=== PATIENT | female | born 1950 | race Caucasian/White ===

== ENCOUNTER 2017-09-24 15:27 | Inpatient (IN) | payer MEDICARE ==
[~2017-09-24] VITALS: Ht 167.6 cm; Wt 57.2 kg
[2017-09-24] MEDS ORDERED: ACETAMINOPHEN 325 MG TABLET PO PRN (17:00)
[2017-09-24] MEDS ORDERED: MAGNESIUM HYDROXIDE 2,400 MG/30 ML ORAL.SUSP. PO PRN (17:00)
[2017-09-24] MEDS ORDERED: METHYL SALICYLATE/MENTHOL TOPICAL OINTMENT 29GM TUBE. TP PRN (17:00)
[2017-09-24] MEDS ORDERED: CYAN10002 IJ (17:05)
[2017-09-24] MEDS ORDERED: ASPI-630 PO (17:05)
[2017-09-24] MEDS ORDERED: BUPR150T15 PO (17:05)
[2017-09-24] MEDS ORDERED: ALPR0.5T PO (17:05)
[2017-09-24] MEDS ORDERED: ALPRAZolam 0.5 MG TABLET PO PRN (17:15)
[2017-09-24] MEDS ORDERED: PANT40TA3 PO (17:25)
[2017-09-24] MEDS: ALPRAZolam 0.5 MG TABLET PO SCH (19:47)
[2017-09-24 22:21] VITALS: BP 111/75
[2017-09-25 04:30] LABS: BACTERIA,URINE 0 /HPF (0-FEW); BILIRUBIN,URINE NEG (NEG); CLARITY,URINE CLEAR; COLOR,URINE YELLOW; GLUCOSE,URINE NEG (NEG); NITRITE,URINE NEG (NEG); RBC,URINE 0 /HPF (0-2); UROBILINOGEN,URINE 0.2 mg/dL (0.2 mg/dL); WBC,URINE RARE /HPF (0-4)
[2017-09-25] MEDS: MAG HYDROX/AL HYDROX/SIMETH 30 ML ORAL.SUSP PO PRN (05:02)
[2017-09-25 05:45] VITALS: BP 140/73
[2017-09-25] MEDS: PANTOPRAZOLE 40 MG TABLET. PO SCH (08:05)
[2017-09-25] MEDS: ASPIRIN 81 MG TAB.CHEW PO SCH (08:05)
[2017-09-25] MEDS: ALPRAZolam 0.5 MG TABLET PO SCH ×3 (08:05→19:39)
[2017-09-25 08:11] LABS: BASO % 0 % (0-3); EOS % 1 % (0-3); HEMATOCRIT 43.4 % (36.0-47.0); HEMOGLOBIN 14.8 g/dL (12.0-15.5); LYMPH # 0.8 x10^3/uL (1.0-4.8); LYMPH % 14 % (24-48); MEAN CORPUSCULAR HEMOGLOBIN 32 pg (25-35); MEAN CORPUSCULAR HGB CONC 34 g/dL (31-37); MEAN CORPUSCULAR VOLUME 93 fL (79-100); MONO # 0.4 x10^3/uL (0.0-1.1); MONO % 7 % (0-9); NEUT # 4.6 x10^3uL (1.8-7.7); NEUT % 78 % (31-73); PLATELET COUNT 244 x10^3/uL (140-400); RED BLOOD COUNT 4.64 x10^6/uL (3.50-5.40); RED CELL DISTRIBUTION WIDTH 12.5 % (11.5-14.5); WHITE BLOOD COUNT 5.9 x10^3/uL (4.0-11.0)
[2017-09-25 08:30] LABS: ALBUMIN 3.8 g/dL (3.4-5.0); ALBUMIN/GLOBULIN RATIO 0.9 (1.0-1.7); CALCIUM 9.6 mg/dL (8.5-10.1); CREATININE 0.9 mg/dL (0.6-1.0); GFR 62.1; MAGNESIUM 1.9 mg/dL (1.8-2.4); POTASSIUM 3.6 mmol/L (3.5-5.1); TOTAL BILIRUBIN 0.4 mg/dL (0.2-1.0); TOTAL PROTEIN 8.2 g/dL (6.4-8.2)
[2017-09-25] MEDS ORDERED: buPROPion XL 150 MG TAB.ER.24H PO SCH (09:00)
[2017-09-25 10:30] LABS: THYROID STIM HORMONE (TSH) 1.666 uIU/mL (0.358-3.740)
--- NOTE | 2017-09-25 12:45 | HP ---
ADMIT DATE: 09/24/2017 This is a late entry for date of service 09/24/2017 and covers elements not covered in my initial note of 09/24/2017. I met with the patient at length. Discussed with nursing staff, previously discussed with nursing staff on 2 or 3 separate occasions including prior to the patient's admission to gather information from [facility] where she was referred to us by Dr. Fabian Hidalgo, her primary care physician for worsening anxiety, being isolated, symptoms of agoraphobia, panic attack, scared of leaving the house, marked depressive symptoms, having failed outpatient psychiatric interventions at [facility] with Chris Ellison, therapist and Dr. Hidalgo, managing her psychotropics. The patient is nonfunctional, lives at home by herself, unable to go out and do shopping and other things necessary for her survival due to the marked anxiety, agoraphobia and referred for inpatient psychiatric interventions. CHIEF COMPLAINT: "It has been getting worse for 2 months. I have had anxiety, panic for a long time, but I just can't handle it now for the past 2 months. I have been seeing Chris Ellison, Dr. Hidalgo has been adjusting my medications, but nothing is helping. I'm on Xanax, previously have been on Klonopin and amitriptyline." HISTORY OF PRESENT ILLNESS: The patient has a long history of depression, which has been worsening for the past 2 months, though there is no clear psychosocial stressor to account for this. She has a couple of family members living in [place] and other family in [place], but she does live alone by herself with her pet. Previously, she was driving, but unable to do all of this. She admits to feeling hopeless, helpless, worthless, having sleep and appetite changes. Some paranoia, but no active suicidal or homicidal ideation. No clear history of bipolar disorder. PAST PSYCHIATRIC HISTORY: As above. MEDICAL HISTORY: Positive for GERD, B12 deficiency, Crohn's disease. DRUG ALLERGIES: FLORINEF, DARVOCET, PREDNISONE, REMICADE, SEPTRA, TORADOL, LEVAQUIN, KETOROLAC. CURRENT PSYCHOTROPICS: Xanax 0.5 mg 3 times a day. CODE STATUS: DNR. FAMILY HISTORY: Noncontributory. SOCIAL HISTORY: No history of alcohol, drug abuse, physical, sexual or elder abuse. She is not known to be a perpetrator. 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 REACTION TO HOSPITALIZATION: The patient accepting of this. ASSETS: Supportive family and outpatient providers at the [facility] in [place]. MENTAL STATUS EXAM: The patient was seen individually evening of 09/24/2017. She is well oriented, extremely anxious, depressed. Speech coherent, abstraction fair, computation reasonable, language function intact. No active suicidal or homicidal ideation. Attention span short. IMPRESSION: 1. Major depressive disorder, recurrent. 2. Generalized anxiety disorder. 3. Panic disorder with agoraphobia. 4. Rest diagnoses as above. PLAN: Admit to Geropsychiatry Unit at [facility]. I will see the patient daily individually from a psychiatric standpoint, medical followup per Dr. Emmanuel/Dr. Olivia. Continue the patient on her current psychotropic, start Cymbalta 30 mg a day. Add Seroquel 12.5 mg 9 a.m. and 5 p.m. to augment the Cymbalta given that she has failed multiple antidepressants in the past. Generally, I would have liked to wait to add the Seroquel, but given the extent of her symptoms, the fact that she may not stay on her unit for too long, given that many of the patients on the unit have significant cognitive deficits and the fact that she has failed intensive outpatient treatment, I feel it is justified to initiate the Seroquel at this time. Estimated length of stay is 7-9 days. DISCHARGE DISPOSITION: Back home with outpatient at the [facility] in [place], [place]. MAN Alejandro VALENCIA MD DR: HOMERO/av JOB#: [id number] / [id number]
[2017-09-25 13:07] LABS: THYROXINE 9.3 ug/dL (4.5-12.0)
[2017-09-25] MEDS ORDERED: CALCIUM CARBONATE 500 MG TAB.CHEW PO PRN (13:45)
[2017-09-25 16:17] VITALS: BP 118/87
[2017-09-25] MEDS ORDERED: NYSTATIN TOPICAL POWDER 15GM BOTTLE. TP ONE (17:39)
--- NOTE | 2017-09-25 19:46 | PDOC ---
Exam Note: Sal Note: Late entry for date of service September. Please also refer to the separate dictated note~for this date of service dictated separately.~Patient seen individually. Discussed the patient with Nursing staff reviewed the chart.~ Reviewed interim history and current functioning. Reviewed vital signs,~Labs/ Radiology~and current medications noted below. Continue current treatment with the changes noted in the dictated addendum note Assessment: Vital Signs: VS - Last 72 Hours, by Label Date Time Temp Pulse Resp B/P (MAP) Pulse Ox O2 Delivery O2 Flow Rate FiO2 09/25/17 16:17 98.1 92 20 118/87 (97) 100 Room Air 09/25/17 05:45 97.5 104 18 140/73 (95) 96 09/24/17 22:21 97.8 91 16 111/75 (87) 98 Vital Signs Date Time Temp Pulse Resp B/P (MAP) Pulse Ox O2 Delivery O2 Flow Rate FiO2 09/25/17 16:17 98.1 92 20 118/87 (97) 100 Room Air I&O Intake and Output 09/25/17 07:00 Intake Total 240 ml Balance 240 ml Intake Oral 240 ml # Voids 1 Labs: Laboratory Tests Test 09/25/17 04:00 09/25/17 07:28 Urine Collection Type Unknown Urine Color Yellow Urine Clarity Clear Urine pH 6.0 Urine Specific [place] 1.010 Urine Protein Neg (NEG-TRACE) Urine Glucose (UA) Neg mg/dL (NEG) Urine Ketones (Stick) Neg mg/dL (NEG) Urine Blood Neg (NEG) Urine Nitrite Neg (NEG) Urine Bilirubin Neg (NEG) Urine Urobilinogen Dipstick 0.2 mg/dL (0.2 mg/dL) Urine Leukocyte Esterase Neg (NEG) Urine RBC 0 /HPF (0-2) Urine WBC Rare /HPF (0-4) Urine Squamous Epithelial Cells None /LPF Urine Bacteria 0 /HPF (0-FEW) White Blood Count 5.9 x10^3/uL (4.0-11.0) Red Blood Count 4.64 x10^6/uL (3.50-5.40) Hemoglobin 14.8 g/dL (12.0-15.5) Hematocrit 43.4 % (36.0-47.0) Mean Corpuscular Volume 93 fL (79-100) Mean Corpuscular Hemoglobin 32 pg (25-35) Mean Corpuscular Hemoglobin Concent 34 g/dL (31-37) Red Cell Distribution Width 12.5 % (11.5-14.5) Platelet Count 244 x10^3/uL (140-400) Neutrophils (%) (Auto) 78 % (31-73) H Lymphocytes (%) (Auto) 14 % (24-48) L Monocytes (%) (Auto) 7 % (0-9) Eosinophils (%) (Auto) 1 % (0-3) Basophils (%) (Auto) 0 % (0-3) Neutrophils # (Auto) 4.6 x10^3uL (1.8-7.7) Lymphocytes # (Auto) 0.8 x10^3/uL (1.0-4.8) L Monocytes # (Auto) 0.4 x10^3/uL (0.0-1.1) Eosinophils # (Auto) 0.0 x10^3/uL (0.0-0.7) Basophils # (Auto) 0.0 x10^3/uL (0.0-0.2) Sodium Level 140 mmol/L (136-145) Potassium Level 3.6 mmol/L (3.5-5.1) Chloride Level 103 mmol/L (98-107) Carbon Dioxide Level 30 mmol/L (21-32) Anion Gap 7 (6-14) Blood Urea Nitrogen 10 mg/dL (7-20) Creatinine 0.9 mg/dL (0.6-1.0) Estimated GFR (Cockcroft-Gault) 62.1 BUN/Creatinine Ratio 11 (6-20) Glucose Level 86 mg/dL (70-99) Calcium Level 9.6 mg/dL (8.5-10.1) Magnesium Level 1.9 mg/dL (1.8-2.4) Iron Level 85 ug/dL (50-170) Total Iron Binding Capacity 294 ug/dL (250-450) Iron Saturation 29 % (15-34) Total Bilirubin 0.4 mg/dL (0.2-1.0) Aspartate Amino Transferase (AST) 28 U/L (15-37) Alanine Aminotransferase (ALT) 25 U/L (14-59) Alkaline Phosphatase 119 U/L (46-116) H Total Protein 8.2 g/dL (6.4-8.2) Albumin 3.8 g/dL (3.4-5.0) Albumin/Globulin Ratio 0.9 (1.0-1.7) L Triglycerides Level 86 mg/dL (0-150) Cholesterol Level 181 mg/dL (0-200) LDL Cholesterol, Calculated 84 mg/dL (0-100) VLDL Cholesterol, Calculated 17 mg/dL (0-40) Non-HDL Cholesterol Calculated 101 mg/dL (0-129) HDL Cholesterol 80 mg/dL (40-60) H Cholesterol/HDL Ratio 2.0 Thyroid Stimulating Hormone (TSH) 1.666 uIU/mL (0.358-3.740) Thyroxine (T4) 9.3 ug/dL (4.5-12.0) Total Triiodothyronine (TT3) 140 ng/dL (71-180) Current Medications: Meds: Current Medications Acetaminophen (Tylenol) 650 mg PRN Q6HRS PRN PO PAIN / TEMP; Start 09/24/17 at 17:00 Multi-Ingredient Ointment (Analgesic [place]) 1 franki PRN QID PRN TP MUSCLE PAIN; Start 09/24/17 at 17:00 Al Hydroxide/Mg Hydroxide (Mylanta Plus Xs) 15 ml PRN AFTMEALHC PRN PO DYSPEPSIA Last administered on 09/25/17at 05:02; Start 09/24/17 at 17:00 Magnesium Hydroxide (Milk Of Magnesia) 2,400 mg PRN QHS PRN PO CONSTIPATION; Start 09/24/17 at 17:00 Alprazolam (Xanax) 0.5 mg PRN TID PRN PO ANXIETY / AGITATION; Start 09/24/17 at 17:15; Stop 09/24/17 at 17:37; Status DC Bupropion HCl (Wellbutrin Xl) 150 mg DAILY PO ; Start 09/25/17 at 09:00; Stop 09/25/17 at 09:00; Status DC Cyanocobalamin (Vitamin B-12) 1,000 mcg QMONTH IM ; Start 10/24/17 at 09:00; Stop 10/24/17 at 09:00; Status DC Aspirin (Children'S Aspirin) 81 mg DAILY PO Last administered on 09/25/17at 08:05 ; Start 09/25/17 at 09:00 Pantoprazole Sodium (Protonix) 40 mg DAILY PO Last administered on 09/25/17at 08: 05; Start 09/25/17 at 09:00 Alprazolam (Xanax) 0.5 mg TID PO Last administered on 09/25/17at 19:39; Start 09/24/17 at 21:00 Cyanocobalamin (Vitamin B-12) 1,000 mcg QMONTH IM ; Start 10/14/17 at 09:00 Duloxetine HCl (Cymbalta) 30 mg DAILY PO ; Start 09/26/17 at 09:00 Quetiapine Fumarate (SEROquel) 12.5 mg BIDWBKFT/MARILYN PO ; Start 09/26/17 at 08:00 Calcium Carbonate/ Glycine (Tums) 500 mg PRN AFTMEALHC PRN PO INDIGESTION Last administered on 09/25/17at 14:56; Start 09/25/17 at 13:45 Nystatin (Nystop) 1 franki BID TP ; Start 09/25/17 at 21:00 Nystatin (Nystop) 15 franki STK-MED ONCE TP Last administered on 09/25/17at 17:39; Start 09/25/17 at 17:39; Stop 09/25/17 at 17:40; Status DC Mirtazapine (Remeron) 7.5 mg QHS PO ; Start 09/25/17 at 21:00 Active Scripts Active Reported Protonix (Pantoprazole Sodium) 40 Mg Tablet.dr 1 Tab PO DAILY Cyanocobalamin Injection (Cyanocobalamin (Vitamin B-12)) 1,000 Mcg/1 Ml Vial 1, 000 Mcg IJ QMONTH Aspirin 81 Mg Tab.chew 81 Mg PO DAILY Xanax (Alprazolam) 0.5 Mg Tablet 0.5 Mg PO PRN TID PRN I have reviewed the current psychotropics carefully including drug interactions. Risk benefit ratio favors no change other than as noted in my dictated progress note. Diagnosis: Problems: (1) Anxiety disorder (2) Major depressive disorder, recurrent episode (3) Panic disorder with agoraphobia and severe panic attacks JAGDEEP VALENCIA MD Sep 25, 2017 19:46
[2017-09-25] MEDS: MIRTAZAPINE 7.5 MG TABLET. PO SCH (19:51)
[2017-09-25] MEDS: NYSTATIN TOPICAL POWDER 15GM BOTTLE. TP SCH (19:52)
--- NOTE | 2017-09-25 21:52 | CONS ---
DATE OF CONSULTATION: 09/25/2017 REASON FOR CONSULTATION: Medical management. HISTORY OF PRESENT ILLNESS: The patient is a 67-year-old female patient who was admitted on account of increased anxiety, isolation, scared to leave house, scared to go to the shopping centers or drive her car, all this on a background of major depressive disorder with anxiety. PAST MEDICAL HISTORY: Significant for Meniere's disease, atrial fibrillation, Crohn's disease, and vitreous detachment. PAST SURGICAL HISTORY: Significant for appendectomy, resection of the skin cancer on her left face, bilateral cataract extraction, esophagogastroduodenoscopy as well as colonoscopy. ALLERGIES: She is allergic to TYLENOL, FLUDROCORTISONE, INDOMETHACIN, INFLIXIMAB, KETOROLAC, LEVOFLOXACIN, PROPOXYPHENE, SULFAMETHOXAZOLE, AND TRIMETHOPRIM. MEDICATIONS: She is currently on following medications: She is on aspirin 81 mg once a day, alprazolam 0.5 mg 3 times a day, Protonix 40 mg daily, and cyanocobalamin, vitamin B12 1000 mcg/mL intramuscularly every month. FAMILY HISTORY: She has one sister older and healthy. Father at the age of 75 because of lung cancer. Mother is still alive at the age of 92. She is known to have osteoarthritis, diabetes, anxiety as well as hypertension. SOCIAL HISTORY: She is , has stepsons. She quit smoking 40 years ago. She used to smoke. She smoked half a pack a day for years. She does not drink alcohol. She is retired. She used to work for the [employer]. REVIEW OF SYSTEMS: The patient denied any blurring of vision. She had bilateral cataract extraction. She has also vitreous detachment. She has Meniere's disease with a constant tinnitus and her hearing is worsening. She denied any stuffy nose, nosebleed, or postnasal drip. Denied any sore throat, sore tongue, toothache, hoarseness of voice, or difficulty swallowing. She did complain of diarrhea because of her Crohn's disease. Denied any dysuria, frequency, or hematuria. Did complain of itching and skin rash in both groin areas. Denied any chest pain, shortness of breath, orthopnea, paroxysmal nocturnal dyspnea. Denied any cough, phlegm, or hemoptysis. She does complain of dizziness. PHYSICAL EXAMINATION: GENERAL: When I examined her, she was sitting comfortably in her chair in no apparent respiratory distress. There were no pallor, jaundice, cyanosis, or thyromegaly. No jugular venous distension. No lower limb edema. VITAL SIGNS: Her heart rate was 104, blood pressure was 140/73, temperature was 97.5, respiratory rate was 18, and oxygen saturation was 96%. HEAD, EYES, EARS, NOSE, AND THROAT: Showed normocephalic, atraumatic. NECK: Supple. HEART: Showed normal first and second heart sounds. No gallop, rub, or murmur. CHEST: Clear to auscultation. No crepitation or rhonchi. ABDOMEN: Distended, soft, nontender. No guarding or rigidity. No organomegaly. All hernial orifice intact. Bowel sounds normal. NEUROLOGIC: She is awake, alert, responding appropriately. All cranial nerves intact. EXTREMITIES: She moves extremities without difficulty. She ambulates without assistance or assistive devices. LABORATORY DATA: Showed a white cell count 5900, hemoglobin 15, hematocrit 43, MCV 93, and platelet count of 244,000 with normal manual differential. Her serum sodium was 140, potassium 3.6, chloride 103, bicarbonate 30, anion gap of 7, BUN 10, creatinine 0.9, estimated GFR was 62 mL per minute. Her glucose was 86, calcium was 9.6, magnesium was 1.9. Her serum iron was 85, TIBC was 294, and iron saturation was 29. Total bilirubin 0.4. AST, ALT normal. Alkaline phosphatase slightly elevated. Her total protein was 8.2, albumin was 3.8. Serum triglycerides were 86, total cholesterol was 181, LDL was 84, VLDL was 17, and ratio was 2. Her TSH was 1.0666, total T4 was . Her urinalysis showed the urine was yellow, clear with a pH of 6, specific gravity of 1.010. The urine was negative for protein, glucose, ketones, blood, nitrite, and leukocyte esterase were negative. There are no rbc's, very rare wbc's, and no bacteria. IMPRESSION: In summary, this is a 67-year-old female patient who was admitted with worsening anxiety, being isolated, symptoms of agoraphobia, panic attacks, scared of leaving the house, marked depressive symptoms, having failed outpatient psychiatric intervention and she is here for an inpatient psychiatric stabilization. Medically, she has multiple medical problems including Meniere's disease, atrial fibrillation, and Crohn's disease. She has also vitamin B12 deficiency, gastroesophageal reflux disease. Medically, she seemed to be all in all stable. Her vital signs today and lab works are all within acceptable range. I will definitely continue all her current medication. I will review all the lab works that are still pending at the time of this dictation and make any necessary recommendation. Thank you, Dr. Mosquera for allowing me to participate in the care of this patient. TAMMY SANTILLAN MD DR: KATHERINE/av JOB#: [id number] / [id number]
[2017-09-26 06:26] VITALS: BP 121/72
[2017-09-26] MEDS: DULoxetine HCL 30 MG CAPSULE.DR PO SCH (08:00)
[2017-09-26] MEDS: PANTOPRAZOLE 40 MG TABLET. PO SCH (08:00)
[2017-09-26] MEDS: ASPIRIN 81 MG TAB.CHEW PO SCH (08:00)
[2017-09-26] MEDS: ALPRAZolam 0.5 MG TABLET PO SCH ×2 (08:00→14:00)
[2017-09-26] MEDS: QUEtiapine 25 MG TABLET. PO SCH ×2 (08:05→14:00)
[2017-09-26] MEDS: NYSTATIN TOPICAL POWDER 15GM BOTTLE. TP SCH ×2 (09:42→21:05)
[2017-09-26 13:13] LABS: HEMOGLOBIN A1C 4.8 % (4.8-5.6)
--- NOTE | 2017-09-26 13:51 | PN ---
DATE: 09/25/2017 This late entry, 09/25/2017, covers elements not covered in my initial note. SUBJECTIVE: I met with the patient in the evening. The patient slept 3 hours previous evening, remains anxious, restless. REVIEW OF SYSTEMS: Positive for vague somatic symptoms, GI symptoms, though she does have Crohn's. No CV, , pulmonary, eye system symptoms on review. I met with her individually at length in her room. MENTAL STATUS EXAM: Reasonably oriented. Speech is coherent, abstraction fair, computation impaired, language function intact, attention span short. Mood and affect remain somewhat anxious, labile. LABORATORY DATA: Reviewed. IMPRESSION: Major depressive disorder; panic disorder with agoraphobia; anxiety disorder, unspecified. PLAN: Start Remeron 7.5 mg p.o. at bedtime to help with insomnia and anxiety, Cymbalta 30 mg a day for her mood and anxiety symptoms and should help with pain symptoms as well and Seroquel 12.5 mg at 9 a.m. and 5:00 p.m. to augment the Cymbalta to help with anxiety and mood lability. Adjust further as clinically indicated. MAN Alejandro VALENCIA MD DR: HOMERO/av JOB#: [id number] / [id number]
[2017-09-26 16:04] VITALS: BP 125/75
[2017-09-26] MEDS ORDERED: ALPRAZolam 0.5 MG TABLET PO PRN (18:30)
[2017-09-26] MEDS: MIRTAZAPINE 7.5 MG TABLET. PO SCH (20:16)
--- NOTE | 2017-09-26 21:04 | PDOC ---
Exam Note: Sal Note: Please also refer to the separate dictated note~for this date of service dictated separately.~Patient seen individually. Discussed the patient with Nursing staff reviewed the chart.~Reviewed interim history and current functioning. Reviewed vital signs,~Labs/ Radiology~and current medications noted below. Continue current treatment with the changes noted in the dictated addendum note Assessment: Vital Signs: Vital Signs Date Time Temp Pulse Resp B/P (MAP) Pulse Ox O2 Delivery O2 Flow Rate FiO2 09/26/17 16:04 97.8 107 20 125/75 (92) 98 09/26/17 06:26 Room Air I&O Intake and Output 09/26/17 07:00 Intake Total 1320 ml Balance 1320 ml Intake Oral 1320 ml Current Medications: Meds: Current Medications Acetaminophen (Tylenol) 650 mg PRN Q6HRS PRN PO PAIN / TEMP; Start 09/24/17 at 17:00 Multi-Ingredient Ointment (Analgesic [place]) 1 franki PRN QID PRN TP MUSCLE PAIN; Start 09/24/17 at 17:00 Al Hydroxide/Mg Hydroxide (Mylanta Plus Xs) 15 ml PRN AFTMEALHC PRN PO DYSPEPSIA Last administered on 09/25/17at 05:02; Start 09/24/17 at 17:00 Magnesium Hydroxide (Milk Of Magnesia) 2,400 mg PRN QHS PRN PO CONSTIPATION; Start 09/24/17 at 17:00 Alprazolam (Xanax) 0.5 mg PRN TID PRN PO ANXIETY / AGITATION; Start 09/24/17 at 17:15; Stop 09/24/17 at 17:37; Status DC Bupropion HCl (Wellbutrin Xl) 150 mg DAILY PO ; Start 09/25/17 at 09:00; Stop 09/25/17 at 09:00; Status DC Cyanocobalamin (Vitamin B-12) 1,000 mcg QMONTH IM ; Start 10/24/17 at 09:00; Stop 10/24/17 at 09:00; Status DC Aspirin (Children'S Aspirin) 81 mg DAILY PO Last administered on 09/26/17at 08:00 ; Start 09/25/17 at 09:00 Pantoprazole Sodium (Protonix) 40 mg DAILY PO Last administered on 09/26/17at 08: 00; Start 09/25/17 at 09:00 Alprazolam (Xanax) 0.5 mg TID PO Last administered on 09/26/17at 14:00; Start 09/24/17 at 21:00; Stop 09/26/17 at 18:16; Status DC Cyanocobalamin (Vitamin B-12) 1,000 mcg QMONTH IM ; Start 10/14/17 at 09:00 Duloxetine HCl (Cymbalta) 30 mg DAILY PO Last administered on 09/26/17at 08:00; Start 09/26/17 at 09:00 Quetiapine Fumarate (SEROquel) 12.5 mg BIDWBKFT/MARILYN PO Last administered on 09/26 14:00; Start 09/26/17 at 08:00 Calcium Carbonate/ Glycine (Tums) 500 mg PRN AFTMEALHC PRN PO INDIGESTION Last administered on 09/25/17 14:56; Start 09/25/17 at 13:45 Nystatin (Nystop) 1 franki BID TP Last administered on 09/26/17at 09:42; Start at 21:00 Nystatin (Nystop) 15 franki STK-MED ONCE TP Last administered on 09/25/17 17:39; Start 09/25/17 at 17:39; Stop 09/25/17 at 17:40; Status DC Mirtazapine (Remeron) 7.5 mg QHS PO Last administered on 09/26/17at 20:16; Start 09/25/17 at 21:00 Alprazolam (Xanax) 0.5 mg PRN TID PRN PO ANXIETY / AGITATION; Start 09/26/17 at 18:30 Active Scripts Active Reported Protonix (Pantoprazole Sodium) 40 Mg Tablet.dr 1 Tab PO DAILY Cyanocobalamin Injection (Cyanocobalamin (Vitamin B-12)) 1,000 Mcg/1 Ml Vial 1, 000 Mcg IJ QMONTH Aspirin 81 Mg Tab.chew 81 Mg PO DAILY Xanax (Alprazolam) 0.5 Mg Tablet 0.5 Mg PO PRN TID PRN I have reviewed the current psychotropics carefully including drug interactions. Risk benefit ratio favors no change other than as noted in my dictated progress note. Diagnosis: Problems: (1) Anxiety disorder (2) Major depressive disorder, recurrent episode (3) Panic disorder with agoraphobia and severe panic attacks JAGDEEP VALENCIA MD Sep 26, 2017 21:04
[2017-09-27 06:47] VITALS: BP 142/79
[2017-09-27] MEDS: QUEtiapine 25 MG TABLET. PO SCH ×2 (08:08→12:53)
[2017-09-27] MEDS: PANTOPRAZOLE 40 MG TABLET. PO SCH (08:09)
[2017-09-27] MEDS: ASPIRIN 81 MG TAB.CHEW PO SCH (08:09)
[2017-09-27] MEDS: DULoxetine HCL 30 MG CAPSULE.DR PO SCH (08:09)
[2017-09-27] MEDS: NYSTATIN TOPICAL POWDER 15GM BOTTLE. TP SCH ×2 (08:10→20:59)
--- NOTE | 2017-09-27 10:31 | PN ---
DATE: 09/26/2017 This is a late entry, 09/26/2017, covers the elements not covered in my initial note. SUBJECTIVE: I met with the patient in the evening. The patient slept 7 hours the previous evening. Complains of some tiredness since we started the Seroquel, but feels anxiety is better. She talked to the therapist, Kristi Ellison earlier in the day and felt reassured being here. She complains of being somewhat withdrawn, slept 7 hours. REVIEW OF SYSTEMS: No CV, , pulmonary, eye system symptoms on review. I met with her at some length in her room. MENTAL STATUS EXAM: Reasonably oriented. Speech is coherent, abstraction fair, computation impaired, language function intact, attention span short. Mood and affect still anxious, obsessive, labile, but much improved. LABORATORY DATA: Reviewed. IMPRESSION: Major depressive disorder; anxiety disorder, unspecified; panic disorder with agoraphobia. PLAN: Given the sedation, we will change the Xanax 0.25 mg three times a day to 0.25 mg three times a day as needed anxiety. Continue Seroquel 12.5 mg 9 before noon, 1 after noon, Cymbalta 30 mg a day, and Remeron 7.5 mg by mouth at bedtime, and she slept much better the previous evening. Adjust further as clinically indicated. JAGDEEP VALENCIA MD DR: HOMERO/av JOB#: [id number] / [id number]
[2017-09-27 16:18] VITALS: BP 127/79
--- NOTE | 2017-09-27 20:29 | PDOC ---
Exam Note: Sal Note: Please also refer to the separate dictated note~for this date of service dictated separately.~Patient seen individually. Discussed the patient with Nursing staff reviewed the chart.~Reviewed interim history and current functioning. Reviewed vital signs,~Labs/ Radiology~and current medications noted below. Continue current treatment with the changes noted in the dictated addendum note Assessment: Vital Signs: Vital Signs Date Time Temp Pulse Resp B/P (MAP) Pulse Ox O2 Delivery O2 Flow Rate FiO2 09/27/17 16:18 98.2 111 18 127/79 (95) 100 09/26/17 06:26 Room Air I&O Intake and Output 09/27/17 06:59 Intake Total 1320 ml Balance 1320 ml Intake Oral 1320 ml Current Medications: Meds: Current Medications Acetaminophen (Tylenol) 650 mg PRN Q6HRS PRN PO PAIN / TEMP Last administered on 09/27/17at 05:58; Start 09/24/17 at 17:00 Multi-Ingredient Ointment (Analgesic [place]) 1 franki PRN QID PRN TP MUSCLE PAIN; Start 09/24/17 at 17:00 Al Hydroxide/Mg Hydroxide (Mylanta Plus Xs) 15 ml PRN AFTMEALHC PRN PO DYSPEPSIA Last administered on 09/25/17at 05:02; Start 09/24/17 at 17:00 Magnesium Hydroxide (Milk Of Magnesia) 2,400 mg PRN QHS PRN PO CONSTIPATION; Start 09/24/17 at 17:00 Alprazolam (Xanax) 0.5 mg PRN TID PRN PO ANXIETY / AGITATION; Start 09/24/17 at 17:15; Stop 09/24/17 at 17:37; Status DC Bupropion HCl (Wellbutrin Xl) 150 mg DAILY PO ; Start 09/25/17 at 09:00; Stop 09/25/17 at 09:00; Status DC Cyanocobalamin (Vitamin B-12) 1,000 mcg QMONTH IM ; Start 10/24/17 at 09:00; Stop 10/24/17 at 09:00; Status DC Aspirin (Children'S Aspirin) 81 mg DAILY PO Last administered on 09/27/17at 08:09 ; Start 09/25/17 at 09:00 Pantoprazole Sodium (Protonix) 40 mg DAILY PO Last administered on 09/27/17at 08: 09; Start 09/25/17 at 09:00 Alprazolam (Xanax) 0.5 mg TID PO Last administered on 09/26/17at 14:00; Start 09/24/17 at 21:00; Stop 09/26/17 at 18:16; Status DC Cyanocobalamin (Vitamin B-12) 1,000 mcg QMONTH IM ; Start 10/14/17 at 09:00 Duloxetine HCl (Cymbalta) 30 mg DAILY PO Last administered on 09/27/17at 08:09; Start 09/26/17 at 09:00 Quetiapine Fumarate (SEROquel) 12.5 mg BIDWBKFT/MARILYN PO Last administered on 09/27at 12:53; Start 09/26/17 at 08:00 Calcium Carbonate/ Glycine (Tums) 500 mg PRN AFTMEALHC PRN PO INDIGESTION Last administered on 09/25/17 14:56; Start 09/25/17 at 13:45 Nystatin (Nystop) 1 franki BID TP Last administered on 09/27/17at 08:10; Start at 21:00 Nystatin (Nystop) 15 franki STK-MED ONCE TP Last administered on 09/25/17at 17:39; Start 09/25/17 at 17:39; Stop 09/25/17 at 17:40; Status DC Mirtazapine (Remeron) 7.5 mg QHS PO Last administered on 09/26/17at 20:16; Start 09/25/17 at 21:00 Alprazolam (Xanax) 0.5 mg PRN TID PRN PO ANXIETY / AGITATION; Start 09/26/17 at 18:30; Stop 09/27/17 at 16:59; Status DC Betamethasone/ Clotrimazole (Lotrisone) 1 franki BID TP ; Start 09/27/17 at 21:00 Alprazolam (Xanax) 0.25 mg BID PO ; Start 09/27/17 at 21:00; Stop 09/30/17 at 22: 00 Alprazolam (Xanax) 0.25 mg DAILY PRN PO ANXIETY / AGITATION; Start 10/01/17 at 09:00; Stop 10/03/17 at 12:00 Alprazolam (Xanax) 0.25 mg PRN BID PRN PO ANXIETY / AGITATION; Start 10/04/17 at 09:00 Active Scripts Active Reported Protonix (Pantoprazole Sodium) 40 Mg Tablet.dr 1 Tab PO DAILY Cyanocobalamin Injection (Cyanocobalamin (Vitamin B-12)) 1,000 Mcg/1 Ml Vial 1, 000 Mcg IJ QMONTH Aspirin 81 Mg Tab.chew 81 Mg PO DAILY Xanax (Alprazolam) 0.5 Mg Tablet 0.5 Mg PO PRN TID PRN I have reviewed the current psychotropics carefully including drug interactions. Risk benefit ratio favors no change other than as noted in my dictated progress note. Diagnosis: Problems: (1) Anxiety disorder (2) Major depressive disorder, recurrent episode (3) Panic disorder with agoraphobia and severe panic attacks JAGDEEP VALENCIA MD Sep 27, 2017 20:29
[2017-09-27] MEDS: CLOTRIMAZOLE/BETAMETH 1%-0.05% TOPICAL CREAM 15GM TUBE. TP SCH (21:00)
[2017-09-27] MEDS: ALPRAZolam 0.25 MG TABLET PO SCH (21:00)
[2017-09-27] MEDS: MIRTAZAPINE 7.5 MG TABLET. PO SCH (21:00)
[2017-09-28 05:49] VITALS: BP 140/76
[2017-09-28] MEDS: QUEtiapine 25 MG TABLET. PO SCH ×2 (07:40→11:53)
[2017-09-28] MEDS: ASPIRIN 81 MG TAB.CHEW PO SCH (07:40)
[2017-09-28] MEDS: PANTOPRAZOLE 40 MG TABLET. PO SCH (07:40)
[2017-09-28] MEDS: DULoxetine HCL 30 MG CAPSULE.DR PO SCH (07:40)
[2017-09-28] MEDS: NYSTATIN TOPICAL POWDER 15GM BOTTLE. TP SCH ×2 (07:43→19:48)
[2017-09-28] MEDS: CLOTRIMAZOLE/BETAMETH 1%-0.05% TOPICAL CREAM 15GM TUBE. TP SCH ×2 (07:43→19:48)
[2017-09-28] MEDS: ALPRAZolam 0.25 MG TABLET PO SCH ×2 (07:43→19:45)
[2017-09-28 16:17] VITALS: BP 130/82
[2017-09-28] MEDS: MIRTAZAPINE 15 MG TABLET PO SCH (19:48)
--- NOTE | 2017-09-28 21:00 | PDOC ---
Exam Note: Sal Note: Please also refer to the separate dictated note~for this date of service dictated separately.~Patient seen individually. Discussed the patient with Nursing staff reviewed the chart.~Reviewed interim history and current functioning. Reviewed vital signs,~Labs/ Radiology~and current medications noted below. Continue current treatment with the changes noted in the dictated addendum note Assessment: Vital Signs: Vital Signs Date Time Temp Pulse Resp B/P (MAP) Pulse Ox O2 Delivery O2 Flow Rate FiO2 09/28/17 16:17 97.9 89 16 130/82 (98) 97 09/26/17 06:26 Room Air I&O Intake and Output 09/28/17 06:59 Intake Total 840 ml Balance 840 ml Intake Oral 840 ml # Bowel Movements 2 Current Medications: Meds: Current Medications Acetaminophen (Tylenol) 650 mg PRN Q6HRS PRN PO PAIN / TEMP Last administered on 09/27/17at 05:58; Start 09/24/17 at 17:00 Multi-Ingredient Ointment (Analgesic [place]) 1 franki PRN QID PRN TP MUSCLE PAIN; Start 09/24/17 at 17:00 Al Hydroxide/Mg Hydroxide (Mylanta Plus Xs) 15 ml PRN AFTMEALHC PRN PO DYSPEPSIA Last administered on 09/25/17at 05:02; Start 09/24/17 at 17:00 Magnesium Hydroxide (Milk Of Magnesia) 2,400 mg PRN QHS PRN PO CONSTIPATION; Start 09/24/17 at 17:00 Alprazolam (Xanax) 0.5 mg PRN TID PRN PO ANXIETY / AGITATION; Start 09/24/17 at 17:15; Stop 09/24/17 at 17:37; Status DC Bupropion HCl (Wellbutrin Xl) 150 mg DAILY PO ; Start 09/25/17 at 09:00; Stop 09/25/17 at 09:00; Status DC Cyanocobalamin (Vitamin B-12) 1,000 mcg QMONTH IM ; Start 10/24/17 at 09:00; Stop 10/24/17 at 09:00; Status DC Aspirin (Children'S Aspirin) 81 mg DAILY PO Last administered on 09/28/17at 07:40 ; Start 09/25/17 at 09:00 Pantoprazole Sodium (Protonix) 40 mg DAILY PO Last administered on 09/28/17 07: 40; Start 09/25/17 at 09:00 Alprazolam (Xanax) 0.5 mg TID PO Last administered on 09/26/17 14:00; Start 09/24/17 at 21:00; Stop 09/26/17 at 18:16; Status DC Cyanocobalamin (Vitamin B-12) 1,000 mcg QMONTH IM ; Start 10/14/17 at 09:00 Duloxetine HCl (Cymbalta) 30 mg DAILY PO Last administered on 09/28/17 07:40; Start 09/26/17 at 09:00 Quetiapine Fumarate (SEROquel) 12.5 mg BIDWBKFT/MARILYN PO Last administered on 09/28 11:53; Start 09/26/17 at 08:00; Stop 09/28/17 at 18:02; Status DC Calcium Carbonate/ Glycine (Tums) 500 mg PRN AFTMEALHC PRN PO INDIGESTION Last administered on 09/25/17at 14:56; Start 09/25/17 at 13:45 Nystatin (Nystop) 1 franki BID TP Last administered on 09/28/17 19:48; Start at 21:00 Nystatin (Nystop) 15 franki STK-MED ONCE TP Last administered on 09/25/17 17:39; Start 09/25/17 at 17:39; Stop 09/25/17 at 17:40; Status DC Mirtazapine (Remeron) 7.5 mg QHS PO Last administered on 09/27/17at 21:00; Start 09/25/17 at 21:00; Stop 09/28/17 at 16:28; Status DC Alprazolam (Xanax) 0.5 mg PRN TID PRN PO ANXIETY / AGITATION; Start 09/26/17 at 18:30; Stop 09/27/17 at 16:59; Status DC Betamethasone/ Clotrimazole (Lotrisone) 1 franki BID TP Last administered on 19:48; Start 09/27/17 at 21:00 Alprazolam (Xanax) 0.25 mg BID PO Last administered on 09/28/17 19:45; Start at 21:00; Stop 09/30/17 at 22:00 Alprazolam (Xanax) 0.25 mg DAILY PRN PO ANXIETY / AGITATION; Start 10/01/17 at 09:00; Stop 10/03/17 at 12:00 Alprazolam (Xanax) 0.25 mg PRN BID PRN PO ANXIETY / AGITATION; Start 10/04/17 at 09:00 Mirtazapine (Remeron) 15 mg QHS PO Last administered on 09/28/17at 19:48; Start 09/28/17 at 21:00 Quetiapine Fumarate (SEROquel) 12.5 mg TID@0900,1300,1700 PO ; Start 09/29/17 at 09:00 Active Scripts Active Reported Protonix (Pantoprazole Sodium) 40 Mg Tablet.dr 1 Tab PO DAILY Cyanocobalamin Injection (Cyanocobalamin (Vitamin B-12)) 1,000 Mcg/1 Ml Vial 1, 000 Mcg IJ QMONTH Aspirin 81 Mg Tab.chew 81 Mg PO DAILY Xanax (Alprazolam) 0.5 Mg Tablet 0.5 Mg PO PRN TID PRN I have reviewed the current psychotropics carefully including drug interactions. Risk benefit ratio favors no change other than as noted in my dictated progress note. Diagnosis: Problems: (1) Anxiety disorder (2) Major depressive disorder, recurrent episode (3) Panic disorder with agoraphobia and severe panic attacks JAGDEEP VALENCIA MD Sep 28, 2017 21:00
--- NOTE | 2017-09-28 22:27 | PN ---
DATE: 09/27/2017 PSYCHIATRIC PROGRESS NOTE This is a late entry, 09/27, covers elements not covered in my initial note. SUBJECTIVE: I met with the patient in the evening. The patient slept 7-1/2 hours previous evening. Overall, she has been doing reasonably well, but complains of feeling dizzy. She seems to be adjusting to the Seroquel and we will restart her on Xanax schedule, drop it down to 0.25 mg twice a day for 3 days, once a day for 3 days, then twice a day p.r.n. thereafter. No CV, , pulmonary, eye system symptoms on review. MENTAL STATUS EXAM: Reasonably oriented. Speech coherent, abstraction fair, computation impaired, language function intact, attention span short. Mood and affect showing some improvement, but ongoing anxiety is evident. LABORATORY DATA: Reviewed. IMPRESSION: Unchanged from initial note. PLAN: No change from initial note. MAN Alejandro VALENCIA MD DR: HOMERO/av JOB#: [id number] / [id number]
[2017-09-29 06:11] VITALS: BP 147/84
[2017-09-29] MEDS: MAG HYDROX/AL HYDROX/SIMETH 30 ML ORAL.SUSP PO PRN (06:22)
[2017-09-29] MEDS: ASPIRIN 81 MG TAB.CHEW PO SCH (07:55)
[2017-09-29] MEDS: DULoxetine HCL 30 MG CAPSULE.DR PO SCH (07:55)
[2017-09-29] MEDS: CLOTRIMAZOLE/BETAMETH 1%-0.05% TOPICAL CREAM 15GM TUBE. TP SCH ×2 (07:55→19:11)
[2017-09-29] MEDS: PANTOPRAZOLE 40 MG TABLET. PO SCH (07:55)
[2017-09-29] MEDS: NYSTATIN TOPICAL POWDER 15GM BOTTLE. TP SCH ×2 (07:55→19:11)
[2017-09-29] MEDS: QUEtiapine 25 MG TABLET. PO SCH ×3 (07:57→16:41)
[2017-09-29] MEDS: ALPRAZolam 0.25 MG TABLET PO SCH ×2 (07:57→19:14)
[2017-09-29 15:38] VITALS: BP 129/75
[2017-09-29] MEDS: MIRTAZAPINE 15 MG TABLET PO SCH (19:11)
--- NOTE | 2017-09-29 20:20 | PDOC ---
Exam Note: Sal Note: Please also refer to the separate dictated note~for this date of service dictated separately.~Patient seen individually. Discussed the patient with Nursing staff reviewed the chart.~Reviewed interim history and current functioning. Reviewed vital signs,~Labs/ Radiology~and current medications noted below. Continue current treatment with the changes noted in the dictated addendum note Assessment: Vital Signs: Vital Signs Date Time Temp Pulse Resp B/P (MAP) Pulse Ox O2 Delivery O2 Flow Rate FiO2 09/29/17 15:38 97.7 85 17 129/75 (93) 98 Room Air I&O Intake and Output 09/29/17 07:00 Intake Total 880 ml Balance 880 ml Intake Oral 880 ml Current Medications: Meds: Current Medications Acetaminophen (Tylenol) 650 mg PRN Q6HRS PRN PO PAIN / TEMP Last administered on 09/27/17at 05:58; Start 09/24/17 at 17:00 Multi-Ingredient Ointment (Analgesic [place]) 1 franki PRN QID PRN TP MUSCLE PAIN; Start 09/24/17 at 17:00 Al Hydroxide/Mg Hydroxide (Mylanta Plus Xs) 15 ml PRN AFTMEALHC PRN PO DYSPEPSIA Last administered on 09/29/17at 06:22; Start 09/24/17 at 17:00 Magnesium Hydroxide (Milk Of Magnesia) 2,400 mg PRN QHS PRN PO CONSTIPATION; Start 09/24/17 at 17:00 Alprazolam (Xanax) 0.5 mg PRN TID PRN PO ANXIETY / AGITATION; Start 09/24/17 at 17:15; Stop 09/24/17 at 17:37; Status DC Bupropion HCl (Wellbutrin Xl) 150 mg DAILY PO ; Start 09/25/17 at 09:00; Stop 09/25/17 at 09:00; Status DC Cyanocobalamin (Vitamin B-12) 1,000 mcg QMONTH IM ; Start 10/24/17 at 09:00; Stop 10/24/17 at 09:00; Status DC Aspirin (Children'S Aspirin) 81 mg DAILY PO Last administered on 09/29/17at 07:55 ; Start 09/25/17 at 09:00 Pantoprazole Sodium (Protonix) 40 mg DAILY PO Last administered on 09/29/17at 07: 55; Start 09/25/17 at 09:00 Alprazolam (Xanax) 0.5 mg TID PO Last administered on 09/26/17 14:00; Start 09/24/17 at 21:00; Stop 09/26/17 at 18:16; Status DC Cyanocobalamin (Vitamin B-12) 1,000 mcg QMONTH IM ; Start 10/14/17 at 09:00 Duloxetine HCl (Cymbalta) 30 mg DAILY PO Last administered on 09/29/17 07:55; Start 09/26/17 at 09:00 Quetiapine Fumarate (SEROquel) 12.5 mg BIDWBKFT/MARILYN PO Last administered on 09/28 11:53; Start 09/26/17 at 08:00; Stop 09/28/17 at 18:02; Status DC Calcium Carbonate/ Glycine (Tums) 500 mg PRN AFTMEALHC PRN PO INDIGESTION Last administered on 09/25/17 14:56; Start 09/25/17 at 13:45 Nystatin (Nystop) 1 franki BID TP Last administered on 09/29/17 19:11; Start at 21:00 Nystatin (Nystop) 15 franki STK-MED ONCE TP Last administered on 09/25/17 17:39; Start 09/25/17 at 17:39; Stop 09/25/17 at 17:40; Status DC Mirtazapine (Remeron) 7.5 mg QHS PO Last administered on 09/27/17at 21:00; Start 09/25/17 at 21:00; Stop 09/28/17 at 16:28; Status DC Alprazolam (Xanax) 0.5 mg PRN TID PRN PO ANXIETY / AGITATION; Start 09/26/17 at 18:30; Stop 09/27/17 at 16:59; Status DC Betamethasone/ Clotrimazole (Lotrisone) 1 franki BID TP Last administered on 19:11; Start 09/27/17 at 21:00 Alprazolam (Xanax) 0.25 mg BID PO Last administered on 09/29/17 19:14; Start at 21:00; Stop 09/30/17 at 22:00 Alprazolam (Xanax) 0.25 mg DAILY PRN PO ANXIETY / AGITATION; Start 10/01/17 at 09:00; Stop 10/03/17 at 12:00 Alprazolam (Xanax) 0.25 mg PRN BID PRN PO ANXIETY / AGITATION; Start 10/04/17 at 09:00 Mirtazapine (Remeron) 15 mg QHS PO Last administered on 09/29/17at 19:11; Start 09/28/17 at 21:00 Quetiapine Fumarate (SEROquel) 12.5 mg TID@0900,1300,1700 PO Last administered on 09/29/17at 16:41; Start 09/29/17 at 09:00 Active Scripts Active Reported Protonix (Pantoprazole Sodium) 40 Mg Tablet.dr 1 Tab PO DAILY Cyanocobalamin Injection (Cyanocobalamin (Vitamin B-12)) 1,000 Mcg/1 Ml Vial 1, 000 Mcg IJ QMONTH Aspirin 81 Mg Tab.chew 81 Mg PO DAILY Xanax (Alprazolam) 0.5 Mg Tablet 0.5 Mg PO PRN TID PRN I have reviewed the current psychotropics carefully including drug interactions. Risk benefit ratio favors no change other than as noted in my dictated progress note. Diagnosis: Problems: (1) Anxiety disorder (2) Major depressive disorder, recurrent episode (3) Panic disorder with agoraphobia and severe panic attacks JAGDEEP VALENCIA MD Sep 29, 2017 20:20
[2017-09-30 05:53] VITALS: BP 137/88
[2017-09-30] MEDS: PANTOPRAZOLE 40 MG TABLET. PO SCH (08:18)
[2017-09-30] MEDS: DULoxetine HCL 30 MG CAPSULE.DR PO SCH (08:18)
[2017-09-30] MEDS: QUEtiapine 25 MG TABLET. PO SCH ×3 (08:18→17:09)
[2017-09-30] MEDS: ALPRAZolam 0.25 MG TABLET PO SCH ×2 (08:18→19:28)
[2017-09-30] MEDS: ASPIRIN 81 MG TAB.CHEW PO SCH (08:18)
[2017-09-30] MEDS: CLOTRIMAZOLE/BETAMETH 1%-0.05% TOPICAL CREAM 15GM TUBE. TP SCH ×2 (08:19→19:28)
[2017-09-30] MEDS: NYSTATIN TOPICAL POWDER 15GM BOTTLE. TP SCH ×2 (08:19→20:05)
[2017-09-30] MEDS: MAG HYDROX/AL HYDROX/SIMETH 30 ML ORAL.SUSP PO PRN (08:49)
[2017-09-30] MEDS ORDERED: CHOLECALCIFEROL (VITAMIN D3) 50,000 UNIT CAPSULE PO SCH (13:30)
--- NOTE | 2017-09-30 13:38 | PN ---
DATE: 09/28/2017 PSYCHIATRIC PROGRESS NOTE This is a late entry, 09/28, covers elements not covered in my initial note, 09/28. SUBJECTIVE: I met with the patient in the evening. The patient has had a better day. She is less anxious, slept 4-3/4 hours previous evening. Appetite about 80%. She complains of some dizziness, lightheadedness, but better than before. REVIEW OF SYSTEMS: No CV, , pulmonary, eye system symptoms on review. MENTAL STATUS EXAM: Well oriented. Speech is coherent, met with her at length in her room. Abstraction fair, computation reasonable, language function intact. Mood and affect appears improved, less labile, less anxious. LABORATORY DATA: Reviewed. IMPRESSION: Major depressive disorder; anxiety disorder, unspecified; panic disorder. PLAN: Increase Remeron to 15 mg p.o. at bedtime to help with insomnia and anxiety. Continue rest unchanged per initial note. JAGDEEP VALENCIA MD DR: HOMERO/av JOB#: [id number] / [id number]
--- NOTE | 2017-09-30 13:41 | PN ---
DATE: 09/29/2017 PSYCHIATRIC PROGRESS NOTE This is a late entry, 09/29, covers elements not covered in my initial note. SUBJECTIVE: I met with the patient in the evening and staffed at treatment team meeting with the entire team in the morning and the patient attended this conference as well. Lengthy discussion with staff about patient's diagnosis, circumstances prompting admission, discussion of her medications, discharge, aftercare plans at the [facility] in [place]. The patient is sleeping about 5-1/2 hours, has some lightheadedness, but again it is better. Appetite is good. REVIEW OF SYSTEMS: No CV, , pulmonary, eye system symptoms on review. MENTAL STATUS EXAM: Reasonably oriented. Speech is coherent, abstraction fair, computation impaired, language function intact. Mood and affect still anxious, but improved. LABORATORY DATA: Reviewed. IMPRESSION: Unchanged from initial note. PLAN: No change from initial note. JAGDEEP VALENCIA MD DR: HOMERO/av JOB#: [id number] / [id number]
[2017-09-30 16:14] VITALS: BP 102/68
[2017-09-30] MEDS: MIRTAZAPINE 15 MG TABLET PO SCH (19:27)
--- NOTE | 2017-09-30 20:47 | PDOC ---
Exam Note: Sal Note: Please also refer to the separate dictated note~for this date of service dictated separately.~Patient seen individually. Discussed the patient with Nursing staff reviewed the chart.~Reviewed interim history and current functioning. Reviewed vital signs,~Labs/ Radiology~and current medications noted below. Continue current treatment with the changes noted in the dictated addendum note Assessment: Vital Signs: Vital Signs Date Time Temp Pulse Resp B/P (MAP) Pulse Ox O2 Delivery O2 Flow Rate FiO2 09/30/17 16:14 98.6 104 18 102/68 (79) 97 09/29/17 15:38 Room Air I&O Intake and Output 09/30/17 07:00 Intake Total 1200 ml Balance 1200 ml Intake Oral 1200 ml # Voids 1 Current Medications: Meds: Current Medications Acetaminophen (Tylenol) 650 mg PRN Q6HRS PRN PO PAIN / TEMP Last administered on 09/27/17at 05:58; Start 09/24/17 at 17:00 Multi-Ingredient Ointment (Analgesic [place]) 1 franki PRN QID PRN TP MUSCLE PAIN; Start 09/24/17 at 17:00 Al Hydroxide/Mg Hydroxide (Mylanta Plus Xs) 15 ml PRN AFTMEALHC PRN PO DYSPEPSIA Last administered on 09/30/17at 08:49; Start 09/24/17 at 17:00 Magnesium Hydroxide (Milk Of Magnesia) 2,400 mg PRN QHS PRN PO CONSTIPATION; Start 09/24/17 at 17:00 Alprazolam (Xanax) 0.5 mg PRN TID PRN PO ANXIETY / AGITATION; Start 09/24/17 at 17:15; Stop 09/24/17 at 17:37; Status DC Bupropion HCl (Wellbutrin Xl) 150 mg DAILY PO ; Start 09/25/17 at 09:00; Stop 09/25/17 at 09:00; Status DC Cyanocobalamin (Vitamin B-12) 1,000 mcg QMONTH IM ; Start 10/24/17 at 09:00; Stop 10/24/17 at 09:00; Status DC Aspirin (Children'S Aspirin) 81 mg DAILY PO Last administered on 09/30/17at 08: 18; Start 09/25/17 at 09:00 Pantoprazole Sodium (Protonix) 40 mg DAILY PO Last administered on 09/30/17 08 :18; Start 09/25/17 at 09:00 Alprazolam (Xanax) 0.5 mg TID PO Last administered on 09/26/17at 14:00; Start 09/24/17 at 21:00; Stop 09/26/17 at 18:16; Status DC Cyanocobalamin (Vitamin B-12) 1,000 mcg QMONTH IM ; Start 10/14/17 at 09:00 Duloxetine HCl (Cymbalta) 30 mg DAILY PO Last administered on 09/30/17 08:18; Start 09/26/17 at 09:00 Quetiapine Fumarate (SEROquel) 12.5 mg BIDWBKFT/MARILYN PO Last administered on 09/28 11:53; Start 09/26/17 at 08:00; Stop 09/28/17 at 18:02; Status DC Calcium Carbonate/ Glycine (Tums) 500 mg PRN AFTMEALHC PRN PO INDIGESTION Last administered on 09/25/17 14:56; Start 09/25/17 at 13:45 Nystatin (Nystop) 1 franki BID TP Last administered on 09/30/17 20:05; Start 09/25 at 21:00 Nystatin (Nystop) 15 franki STK-MED ONCE TP Last administered on 09/25/17 17:39; Start 09/25/17 at 17:39; Stop 09/25/17 at 17:40; Status DC Mirtazapine (Remeron) 7.5 mg QHS PO Last administered on 09/27/17at 21:00; Start 09/25/17 at 21:00; Stop 09/28/17 at 16:28; Status DC Alprazolam (Xanax) 0.5 mg PRN TID PRN PO ANXIETY / AGITATION; Start 09/26/17 at 18:30; Stop 09/27/17 at 16:59; Status DC Betamethasone/ Clotrimazole (Lotrisone) 1 franki BID TP Last administered on at 19:28; Start 09/27/17 at 21:00 Alprazolam (Xanax) 0.25 mg BID PO Last administered on 09/30/17at 19:28; Start 09/27/17 at 21:00; Stop 09/30/17 at 22:00 Alprazolam (Xanax) 0.25 mg DAILY PRN PO ANXIETY / AGITATION; Start 10/01/17 at 09:00; Stop 10/03/17 at 12:00 Alprazolam (Xanax) 0.25 mg PRN BID PRN PO ANXIETY / AGITATION; Start 10/04/17 at 09:00 Mirtazapine (Remeron) 15 mg QHS PO Last administered on 09/30/17at 19:27; Start 09/28/17 at 21:00 Quetiapine Fumarate (SEROquel) 12.5 mg TID@0900,1300,1700 PO Last administered on 09/30/17at 17:09; Start 09/29/17 at 09:00 Vitamin D (Vitamin D3) 50,000 unit WEEKLY PO Last administered on 09/30/17at 13: 24; Start 09/30/17 at 13:30 Active Scripts Active Reported Protonix (Pantoprazole Sodium) 40 Mg Tablet.dr 1 Tab PO DAILY Cyanocobalamin Injection (Cyanocobalamin (Vitamin B-12)) 1,000 Mcg/1 Ml Vial 1, 000 Mcg IJ QMONTH Aspirin 81 Mg Tab.chew 81 Mg PO DAILY Xanax (Alprazolam) 0.5 Mg Tablet 0.5 Mg PO PRN TID PRN I have reviewed the current psychotropics carefully including drug interactions. Risk benefit ratio favors no change other than as noted in my dictated progress note. Diagnosis: Problems: (1) Anxiety disorder (2) Major depressive disorder, recurrent episode (3) Panic disorder with agoraphobia and severe panic attacks JAGDEEP VALENCIA MD Sep 30, 2017 20:47
[2017-10-01 06:40] VITALS: BP 142/77
[2017-10-01] MEDS: DULoxetine HCL 30 MG CAPSULE.DR PO SCH (07:53)
[2017-10-01] MEDS: PANTOPRAZOLE 40 MG TABLET. PO SCH (07:53)
[2017-10-01] MEDS: ASPIRIN 81 MG TAB.CHEW PO SCH (07:53)
[2017-10-01] MEDS: QUEtiapine 25 MG TABLET. PO SCH ×3 (07:53→16:44)
[2017-10-01 07:54] LABS: BASO % 1 % (0-3); EOS # 0.1 x10^3/uL (0.0-0.7); EOS % 1 % (0-3); HEMATOCRIT 41.3 % (36.0-47.0); HEMOGLOBIN 14.1 g/dL (12.0-15.5); LYMPH # 0.9 x10^3/uL (1.0-4.8); LYMPH % 19 % (24-48); MEAN CORPUSCULAR HEMOGLOBIN 32 pg (25-35); MEAN CORPUSCULAR HGB CONC 34 g/dL (31-37); MEAN CORPUSCULAR VOLUME 93 fL (79-100); MONO # 0.4 x10^3/uL (0.0-1.1); MONO % 7 % (0-9); NEUT # 3.5 x10^3uL (1.8-7.7); NEUT % 72 % (31-73); PLATELET COUNT 231 x10^3/uL (140-400); RED BLOOD COUNT 4.43 x10^6/uL (3.50-5.40); RED CELL DISTRIBUTION WIDTH 12.6 % (11.5-14.5); WHITE BLOOD COUNT 4.9 x10^3/uL (4.0-11.0)
[2017-10-01] MEDS: CLOTRIMAZOLE/BETAMETH 1%-0.05% TOPICAL CREAM 15GM TUBE. TP SCH ×2 (07:54→20:16)
[2017-10-01] MEDS: NYSTATIN TOPICAL POWDER 15GM BOTTLE. TP SCH ×2 (07:55→20:26)
[2017-10-01 08:08] LABS: ALBUMIN 3.5 g/dL (3.4-5.0); ALBUMIN/GLOBULIN RATIO 0.9 (1.0-1.7); CREATININE 0.9 mg/dL (0.6-1.0); GFR 62.1; POTASSIUM 3.8 mmol/L (3.5-5.1); TOTAL BILIRUBIN 0.5 mg/dL (0.2-1.0); TOTAL PROTEIN 7.4 g/dL (6.4-8.2)
[2017-10-01 16:27] VITALS: BP 112/73
[2017-10-01] MEDS: MIRTAZAPINE 15 MG TABLET PO SCH ×2 (20:15→20:16)
--- NOTE | 2017-10-01 23:04 | PDOC ---
Exam Note: Sal Note: Please also refer to the separate dictated note~for this date of service dictated separately.~Patient seen individually. Discussed the patient with Nursing staff reviewed the chart.~Reviewed interim history and current functioning. Reviewed vital signs,~Labs/ Radiology~and current medications noted below. Continue current treatment with the changes noted in the dictated addendum note Assessment: Vital Signs: Vital Signs Date Time Temp Pulse Resp B/P (MAP) Pulse Ox O2 Delivery O2 Flow Rate FiO2 10/01/17 16:27 98.4 92 16 112/73 (86) 100 09/29/17 15:38 Room Air I&O Intake and Output 10/01/17 07:00 Intake Total 960 ml Balance 960 ml Intake Oral 960 ml Labs: Laboratory Tests Test 10/01/17 07:34 White Blood Count 4.9 x10^3/uL (4.0-11.0) Red Blood Count 4.43 x10^6/uL (3.50-5.40) Hemoglobin 14.1 g/dL (12.0-15.5) Hematocrit 41.3 % (36.0-47.0) Mean Corpuscular Volume 93 fL (79-100) Mean Corpuscular Hemoglobin 32 pg (25-35) Mean Corpuscular Hemoglobin Concent 34 g/dL (31-37) Red Cell Distribution Width 12.6 % (11.5-14.5) Platelet Count 231 x10^3/uL (140-400) Neutrophils (%) (Auto) 72 % (31-73) Lymphocytes (%) (Auto) 19 % (24-48) L Monocytes (%) (Auto) 7 % (0-9) Eosinophils (%) (Auto) 1 % (0-3) Basophils (%) (Auto) 1 % (0-3) Neutrophils # (Auto) 3.5 x10^3uL (1.8-7.7) Lymphocytes # (Auto) 0.9 x10^3/uL (1.0-4.8) L Monocytes # (Auto) 0.4 x10^3/uL (0.0-1.1) Eosinophils # (Auto) 0.1 x10^3/uL (0.0-0.7) Basophils # (Auto) 0.0 x10^3/uL (0.0-0.2) Sodium Level 138 mmol/L (136-145) Potassium Level 3.8 mmol/L (3.5-5.1) Chloride Level 104 mmol/L (98-107) Carbon Dioxide Level 27 mmol/L (21-32) Anion Gap 7 (6-14) Blood Urea Nitrogen 15 mg/dL (7-20) Creatinine 0.9 mg/dL (0.6-1.0) Estimated GFR (Cockcroft-Gault) 62.1 BUN/Creatinine Ratio 17 (6-20) Glucose Level 95 mg/dL (70-99) Calcium Level 9.0 mg/dL (8.5-10.1) Total Bilirubin 0.5 mg/dL (0.2-1.0) Aspartate Amino Transferase (AST) 29 U/L (15-37) Alanine Aminotransferase (ALT) 23 U/L (14-59) Alkaline Phosphatase 114 U/L (46-116) Total Protein 7.4 g/dL (6.4-8.2) Albumin 3.5 g/dL (3.4-5.0) Albumin/Globulin Ratio 0.9 (1.0-1.7) L Current Medications: Meds: Current Medications Acetaminophen (Tylenol) 650 mg PRN Q6HRS PRN PO PAIN / TEMP Last administered on 09/27/17at 05:58; Start 09/24/17 at 17:00 Multi-Ingredient Ointment (Analgesic [place]) 1 franki PRN QID PRN TP MUSCLE PAIN; Start 09/24/17 at 17:00 Al Hydroxide/Mg Hydroxide (Mylanta Plus Xs) 15 ml PRN AFTMEALHC PRN PO DYSPEPSIA Last administered on 09/30/17at 08:49; Start 09/24/17 at 17:00 Magnesium Hydroxide (Milk Of Magnesia) 2,400 mg PRN QHS PRN PO CONSTIPATION; Start 09/24/17 at 17:00 Alprazolam (Xanax) 0.5 mg PRN TID PRN PO ANXIETY / AGITATION; Start 09/24/17 at 17:15; Stop 09/24/17 at 17:37; Status DC Bupropion HCl (Wellbutrin Xl) 150 mg DAILY PO ; Start 09/25/17 at 09:00; Stop 09/25/17 at 09:00; Status DC Cyanocobalamin (Vitamin B-12) 1,000 mcg QMONTH IM ; Start 10/24/17 at 09:00; Stop 10/24/17 at 09:00; Status DC Aspirin (Children'S Aspirin) 81 mg DAILY PO Last administered on 10/01/17at 07: 53; Start 09/25/17 at 09:00 Pantoprazole Sodium (Protonix) 40 mg DAILY PO Last administered on 10/01/17 07 :53; Start 09/25/17 at 09:00 Alprazolam (Xanax) 0.5 mg TID PO Last administered on 09/26/17at 14:00; Start 09/24/17 at 21:00; Stop 09/26/17 at 18:16; Status DC Cyanocobalamin (Vitamin B-12) 1,000 mcg QMONTH IM ; Start 10/14/17 at 09:00 Duloxetine HCl (Cymbalta) 30 mg DAILY PO Last administered on 10/01/17at 07:53; Start 09/26/17 at 09:00 Quetiapine Fumarate (SEROquel) 12.5 mg BIDWBKFT/MARILYN PO Last administered on 09/28at 11:53; Start 09/26/17 at 08:00; Stop 09/28/17 at 18:02; Status DC Calcium Carbonate/ Glycine (Tums) 500 mg PRN AFTMEALHC PRN PO INDIGESTION Last administered on 09/25/17at 14:56; Start 09/25/17 at 13:45 Nystatin (Nystop) 1 franki BID TP Last administered on 10/01/17at 20:26; Start 09/25 at 21:00 Nystatin (Nystop) 15 franki STK-MED ONCE TP Last administered on 09/25/17at 17:39; Start 09/25/17 at 17:39; Stop 09/25/17 at 17:40; Status DC Mirtazapine (Remeron) 7.5 mg QHS PO Last administered on 09/27/17at 21:00; Start 09/25/17 at 21:00; Stop 09/28/17 at 16:28; Status DC Alprazolam (Xanax) 0.5 mg PRN TID PRN PO ANXIETY / AGITATION; Start 09/26/17 at 18:30; Stop 09/27/17 at 16:59; Status DC Betamethasone/ Clotrimazole (Lotrisone) 1 franki BID TP Last administered on at 20:16; Start 09/27/17 at 21:00 Alprazolam (Xanax) 0.25 mg BID PO Last administered on 09/30/17at 19:28; Start 09/27/17 at 21:00; Stop 09/30/17 at 22:00; Status DC Alprazolam (Xanax) 0.25 mg DAILY PRN PO ANXIETY / AGITATION; Start 10/01/17 at 09:00; Stop 10/03/17 at 12:00 Alprazolam (Xanax) 0.25 mg PRN BID PRN PO ANXIETY / AGITATION; Start 10/04/17 at 09:00 Mirtazapine (Remeron) 15 mg QHS PO Last administered on 10/01/17at 20:16; Start 09/28/17 at 21:00 Quetiapine Fumarate (SEROquel) 12.5 mg TID@0900,1300,1700 PO Last administered on 10/01/17at 16:44; Start 09/29/17 at 09:00 Vitamin D (Vitamin D3) 50,000 unit WEEKLY PO Last administered on 09/30/17at 13: 24; Start 09/30/17 at 13:30 Active Scripts Active Reported Protonix (Pantoprazole Sodium) 40 Mg Tablet.dr 1 Tab PO DAILY Cyanocobalamin Injection (Cyanocobalamin (Vitamin B-12)) 1,000 Mcg/1 Ml Vial 1, 000 Mcg IJ QMONTH Aspirin 81 Mg Tab.chew 81 Mg PO DAILY Xanax (Alprazolam) 0.5 Mg Tablet 0.5 Mg PO PRN TID PRN I have reviewed the current psychotropics carefully including drug interactions. Risk benefit ratio favors no change other than as noted in my dictated progress note. Diagnosis: Problems: (1) Anxiety disorder (2) Major depressive disorder, recurrent episode (3) Panic disorder with agoraphobia and severe panic attacks JAGDEEP VALENCIA MD Oct 01, 2017 23:04
[2017-10-02] MEDS: ALPRAZolam 0.25 MG TABLET PO PRN (03:49)
[2017-10-02] MEDS: MAG HYDROX/AL HYDROX/SIMETH 30 ML ORAL.SUSP PO PRN (06:37)
[2017-10-02 07:06] VITALS: BP 149/86
[2017-10-02] MEDS: ASPIRIN 81 MG TAB.CHEW PO SCH (08:07)
[2017-10-02] MEDS: DULoxetine HCL 30 MG CAPSULE.DR PO SCH (08:07)
[2017-10-02] MEDS: PANTOPRAZOLE 40 MG TABLET. PO SCH (08:08)
[2017-10-02] MEDS: QUEtiapine 25 MG TABLET. PO SCH ×3 (08:08→17:13)
[2017-10-02] MEDS: NYSTATIN TOPICAL POWDER 15GM BOTTLE. TP SCH ×2 (08:09→21:00)
[2017-10-02] MEDS: CLOTRIMAZOLE/BETAMETH 1%-0.05% TOPICAL CREAM 15GM TUBE. TP SCH ×2 (08:09→21:21)
--- NOTE | 2017-10-02 10:23 | PN ---
DATE: 09/30/2017 PSYCHIATRIC PROGRESS NOTE This is a late entry 09/30/2017 covers elements not covered in my initial note. SUBJECTIVE: I met with the patient in the evening. Overall, the patient is doing better, but complains of some tremors. She is still anxious, but better than before. REVIEW OF SYSTEMS: No CV, , pulmonary, eye, ENT system symptoms on review. MENTAL STATUS EXAM: Reasonably oriented. Speech is coherent, abstraction fair, computation impaired, language function intact, attention span fair. Mood and affect anxious, but improved. LABORATORY DATA: Reviewed. IMPRESSION: Major depressive disorder with panic disorder with agoraphobia. PLAN: Continue psychotropics from initial note. May need to gradually adjust the Seroquel and Xanax further. MAN Alejandro VALENCIA MD DR: HOMERO/av JOB#: [id number] / [id number]
--- NOTE | 2017-10-02 11:38 | PN ---
DATE: 10/01/2017 PSYCHIATRIC PROGRESS NOTE This late entry 10/01/2017 covers elements, not covered in my initial note, 10/01/2017. I met with the patient in the evening. The patient slept 6-1/4 hours previous evening. The patient relates that she has been a little more anxious during the day today. She woke up feeling well, but as the day has gone on, she has felt more anxious. She complains of occasional tremors as well. Her Xanax has been dropped down to once a day starting 10/01/2017 and this could be contributing to the increased anxiety. We will add Xanax 0.25 mg t.i.d. p.r.n. in addition to help compensate for this. REVIEW OF SYSTEMS: No CV, , pulmonary, eye, ENT system symptoms on review. MENTAL STATUS EXAM: Reasonably oriented. I met with her at some length in her room. Speech coherent, abstraction fair, computation reasonable, language function intact, attention span short. Mood is anxious. Affect is mood congruent, but depressive symptoms are better. LABORATORY DATA: Reviewed. IMPRESSION: Major depressive disorder, panic disorder with agoraphobia. PLAN: Continue psychotropics from initial note in addition to changes noted above. JAGDEEP VALENCIA MD DR: HOMERO/av JOB#: [id number] / [id number]
[2017-10-02 15:58] VITALS: BP 127/71
--- NOTE | 2017-10-02 20:00 | PDOC ---
Exam Note: Sal Note: Please also refer to the separate dictated note~for this date of service dictated separately.~Patient seen individually. Discussed the patient with Nursing staff reviewed the chart.~Reviewed interim history and current functioning. Reviewed vital signs,~Labs/ Radiology~and current medications noted below. Continue current treatment with the changes noted in the dictated addendum note Assessment: Vital Signs: Vital Signs Date Time Temp Pulse Resp B/P (MAP) Pulse Ox O2 Delivery O2 Flow Rate FiO2 10/02/17 15:58 98.7 93 18 127/71 (89) 97 09/29/17 15:38 Room Air I&O Intake and Output 10/02/17 06:59 Intake Total 600 ml Balance 600 ml Intake Oral 600 ml Current Medications: Meds: Current Medications Acetaminophen (Tylenol) 650 mg PRN Q6HRS PRN PO PAIN / TEMP Last administered on 09/27/17at 05:58; Start 09/24/17 at 17:00 Multi-Ingredient Ointment (Analgesic [place]) 1 franki PRN QID PRN TP MUSCLE PAIN; Start 09/24/17 at 17:00 Al Hydroxide/Mg Hydroxide (Mylanta Plus Xs) 15 ml PRN AFTMEALHC PRN PO DYSPEPSIA Last administered on 10/02/17at 06:37; Start 09/24/17 at 17:00 Magnesium Hydroxide (Milk Of Magnesia) 2,400 mg PRN QHS PRN PO CONSTIPATION; Start 09/24/17 at 17:00 Alprazolam (Xanax) 0.5 mg PRN TID PRN PO ANXIETY / AGITATION; Start 09/24/17 at 17:15; Stop 09/24/17 at 17:37; Status DC Bupropion HCl (Wellbutrin Xl) 150 mg DAILY PO ; Start 09/25/17 at 09:00; Stop 09/25/17 at 09:00; Status DC Cyanocobalamin (Vitamin B-12) 1,000 mcg QMONTH IM ; Start 10/24/17 at 09:00; Stop 10/24/17 at 09:00; Status DC Aspirin (Children'S Aspirin) 81 mg DAILY PO Last administered on 10/02/17at 08: 07; Start 09/25/17 at 09:00 Pantoprazole Sodium (Protonix) 40 mg DAILY PO Last administered on 8/12/18at 08 :08; Start 09/25/17 at 09:00 Alprazolam (Xanax) 0.5 mg TID PO Last administered on 09/26/17 14:00; Start 09/24/17 at 21:00; Stop 09/26/17 at 18:16; Status DC Cyanocobalamin (Vitamin B-12) 1,000 mcg QMONTH IM ; Start 10/14/17 at 09:00 Duloxetine HCl (Cymbalta) 30 mg DAILY PO Last administered on 10/02/17 08:07; Start 09/26/17 at 09:00 Quetiapine Fumarate (SEROquel) 12.5 mg BIDWBKFT/MARILYN PO Last administered on 09/28 11:53; Start 09/26/17 at 08:00; Stop 09/28/17 at 18:02; Status DC Calcium Carbonate/ Glycine (Tums) 500 mg PRN AFTMEALHC PRN PO INDIGESTION Last administered on 09/25/17 14:56; Start 09/25/17 at 13:45 Nystatin (Nystop) 1 franki BID TP Last administered on 10/01/17 20:26; Start 09/25 at 21:00 Nystatin (Nystop) 15 franki STK-MED ONCE TP Last administered on 09/25/17 17:39; Start 09/25/17 at 17:39; Stop 09/25/17 at 17:40; Status DC Mirtazapine (Remeron) 7.5 mg QHS PO Last administered on 09/27/17at 21:00; Start 09/25/17 at 21:00; Stop 09/28/17 at 16:28; Status DC Alprazolam (Xanax) 0.5 mg PRN TID PRN PO ANXIETY / AGITATION; Start 09/26/17 at 18:30; Stop 09/27/17 at 16:59; Status DC Betamethasone/ Clotrimazole (Lotrisone) 1 franki BID TP Last administered on 08:09; Start 09/27/17 at 21:00 Alprazolam (Xanax) 0.25 mg BID PO Last administered on 09/30/17at 19:28; Start 09/27/17 at 21:00; Stop 09/30/17 at 22:00; Status DC Alprazolam (Xanax) 0.25 mg DAILY PRN PO ANXIETY / AGITATION Last administered on 10/02/17at 03:49; Start 10/01/17 at 09:00; Stop 10/03/17 at 12:00 Alprazolam (Xanax) 0.25 mg PRN BID PRN PO ANXIETY / AGITATION; Start 10/04/17 at 09:00; Stop 10/04/17 at 09:00; Status DC Mirtazapine (Remeron) 15 mg QHS PO Last administered on 10/01/17at 20:16; Start 09/28/17 at 21:00 Quetiapine Fumarate (SEROquel) 12.5 mg TID@0900,1300,1700 PO Last administered on 10/02/17at 17:13; Start 09/29/17 at 09:00 Vitamin D (Vitamin D3) 50,000 unit WEEKLY PO Last administered on 09/30/17at 13: 24; Start 09/30/17 at 13:30 Alprazolam (Xanax) 0.25 mg PRN TID PRN PO ANXIETY / AGITATION; Start 10/04/17 at 09:00 Active Scripts Active Reported Protonix (Pantoprazole Sodium) 40 Mg Tablet.dr 1 Tab PO DAILY Cyanocobalamin Injection (Cyanocobalamin (Vitamin B-12)) 1,000 Mcg/1 Ml Vial 1, 000 Mcg IJ QMONTH Aspirin 81 Mg Tab.chew 81 Mg PO DAILY Xanax (Alprazolam) 0.5 Mg Tablet 0.5 Mg PO PRN TID PRN I have reviewed the current psychotropics carefully including drug interactions. Risk benefit ratio favors no change other than as noted in my dictated progress note. Diagnosis: Problems: (1) Anxiety disorder (2) Major depressive disorder, recurrent episode (3) Panic disorder with agoraphobia and severe panic attacks JAGDEEP VALENCIA MD Oct 02, 2017 20:00
[2017-10-02] MEDS: MIRTAZAPINE 15 MG TABLET PO SCH (21:21)
[2017-10-02] MEDS: MELATONIN 3 MG TABLET PO SCH (21:22)
[2017-10-03 06:15] VITALS: BP 149/82
[2017-10-03] MEDS: ASPIRIN 81 MG TAB.CHEW PO SCH (07:15)
[2017-10-03] MEDS: QUEtiapine 25 MG TABLET. PO SCH ×3 (07:15→17:09)
[2017-10-03] MEDS: ALPRAZolam 0.25 MG TABLET PO PRN (07:15)
[2017-10-03] MEDS: PANTOPRAZOLE 40 MG TABLET. PO SCH (07:15)
[2017-10-03] MEDS: DULoxetine HCL 30 MG CAPSULE.DR PO SCH (07:15)
[2017-10-03] MEDS: CLOTRIMAZOLE/BETAMETH 1%-0.05% TOPICAL CREAM 15GM TUBE. TP SCH ×2 (09:00→19:31)
[2017-10-03] MEDS: NYSTATIN TOPICAL POWDER 15GM BOTTLE. TP SCH ×2 (09:00→19:33)
[2017-10-03] MEDS ORDERED: LOPERAMIDE 2 MG CAPSULE PO PRN (14:00)
[2017-10-03 16:18] VITALS: BP 127/76
[2017-10-03] MEDS: MELATONIN 3 MG TABLET PO SCH (19:28)
[2017-10-03] MEDS: MIRTAZAPINE 15 MG TABLET PO SCH (19:28)
--- NOTE | 2017-10-03 22:17 | PDOC ---
Exam Note: Sal Note: Please also refer to the separate dictated note~for this date of service dictated separately.~Patient seen individually. Discussed the patient with Nursing staff reviewed the chart.~Reviewed interim history and current functioning. Reviewed vital signs,~Labs/ Radiology~and current medications noted below. Continue current treatment with the changes noted in the dictated addendum note Assessment: Vital Signs: Vital Signs Date Time Temp Pulse Resp B/P (MAP) Pulse Ox O2 Delivery O2 Flow Rate FiO2 10/03/17 16:18 98.2 88 16 127/76 (93) 95 10/03/17 06:15 Room Air I&O Intake and Output 10/03/17 06:59 Intake Total 840 ml Balance 840 ml Intake Oral 840 ml Current Medications: Meds: Current Medications Acetaminophen (Tylenol) 650 mg PRN Q6HRS PRN PO PAIN / TEMP Last administered on 09/27/17at 05:58; Start 09/24/17 at 17:00 Multi-Ingredient Ointment (Analgesic [place]) 1 franki PRN QID PRN TP MUSCLE PAIN; Start 09/24/17 at 17:00 Al Hydroxide/Mg Hydroxide (Mylanta Plus Xs) 15 ml PRN AFTMEALHC PRN PO DYSPEPSIA Last administered on 10/02/17at 06:37; Start 09/24/17 at 17:00 Magnesium Hydroxide (Milk Of Magnesia) 2,400 mg PRN QHS PRN PO CONSTIPATION; Start 09/24/17 at 17:00 Alprazolam (Xanax) 0.5 mg PRN TID PRN PO ANXIETY / AGITATION; Start 09/24/17 at 17:15; Stop 09/24/17 at 17:37; Status DC Bupropion HCl (Wellbutrin Xl) 150 mg DAILY PO ; Start 09/25/17 at 09:00; Stop 09/25/17 at 09:00; Status DC Cyanocobalamin (Vitamin B-12) 1,000 mcg QMONTH IM ; Start 10/24/17 at 09:00; Stop 10/24/17 at 09:00; Status DC Aspirin (Children'S Aspirin) 81 mg DAILY PO Last administered on 10/03/17at 07: 15; Start 09/25/17 at 09:00 Pantoprazole Sodium (Protonix) 40 mg DAILY PO Last administered on 10/03/17 07 :15; Start 09/25/17 at 09:00 Alprazolam (Xanax) 0.5 mg TID PO Last administered on 09/26/17 14:00; Start 09/24/17 at 21:00; Stop 09/26/17 at 18:16; Status DC Cyanocobalamin (Vitamin B-12) 1,000 mcg QMONTH IM ; Start 10/14/17 at 09:00 Duloxetine HCl (Cymbalta) 30 mg DAILY PO Last administered on 10/03/17 07:15; Start 09/26/17 at 09:00 Quetiapine Fumarate (SEROquel) 12.5 mg BIDWBKFT/MARILYN PO Last administered on 09/28 11:53; Start 09/26/17 at 08:00; Stop 09/28/17 at 18:02; Status DC Calcium Carbonate/ Glycine (Tums) 500 mg PRN AFTMEALHC PRN PO INDIGESTION Last administered on 09/25/17 14:56; Start 09/25/17 at 13:45 Nystatin (Nystop) 1 franki BID TP Last administered on 10/03/17 19:33; Start 09/25 at 21:00 Nystatin (Nystop) 15 franki STK-MED ONCE TP Last administered on 09/25/17 17:39; Start 09/25/17 at 17:39; Stop 09/25/17 at 17:40; Status DC Mirtazapine (Remeron) 7.5 mg QHS PO Last administered on 09/27/17at 21:00; Start 09/25/17 at 21:00; Stop 09/28/17 at 16:28; Status DC Alprazolam (Xanax) 0.5 mg PRN TID PRN PO ANXIETY / AGITATION; Start 09/26/17 at 18:30; Stop 09/27/17 at 16:59; Status DC Betamethasone/ Clotrimazole (Lotrisone) 1 franki BID TP Last administered on 19:31; Start 09/27/17 at 21:00 Alprazolam (Xanax) 0.25 mg BID PO Last administered on 09/30/17at 19:28; Start 09/27/17 at 21:00; Stop 09/30/17 at 22:00; Status DC Alprazolam (Xanax) 0.25 mg DAILY PRN PO ANXIETY / AGITATION Last administered on 10/03/17at 07:15; Start 10/01/17 at 09:00; Stop 10/03/17 at 12:01; Status DC Alprazolam (Xanax) 0.25 mg PRN BID PRN PO ANXIETY / AGITATION; Start 10/04/17 at 09:00; Stop 10/04/17 at 09:00; Status DC Mirtazapine (Remeron) 15 mg QHS PO Last administered on 10/03/17at 19:28; Start 09/28/17 at 21:00 Quetiapine Fumarate (SEROquel) 12.5 mg TID@0900,1300,1700 PO Last administered on 10/03/17at 17:09; Start 09/29/17 at 09:00 Vitamin D (Vitamin D3) 50,000 unit WEEKLY PO Last administered on 09/30/17at 13: 24; Start 09/30/17 at 13:30 Alprazolam (Xanax) 0.25 mg PRN TID PRN PO ANXIETY / AGITATION; Start 10/04/17 at 09:00 Melatonin 3 mg QHS PO Last administered on 10/03/17at 19:28; Start 10/02/17 at 21:00 Loperamide HCl (Imodium) 2 mg PRN Q1HR PRN PO DIARRHEA; Start 10/03/17 at 14:00 Active Scripts Active Reported Protonix (Pantoprazole Sodium) 40 Mg Tablet.dr 1 Tab PO DAILY Cyanocobalamin Injection (Cyanocobalamin (Vitamin B-12)) 1,000 Mcg/1 Ml Vial 1, 000 Mcg IJ QMONTH Aspirin 81 Mg Tab.chew 81 Mg PO DAILY Xanax (Alprazolam) 0.5 Mg Tablet 0.5 Mg PO PRN TID PRN I have reviewed the current psychotropics carefully including drug interactions. Risk benefit ratio favors no change other than as noted in my dictated progress note. Diagnosis: Problems: (1) Anxiety disorder (2) Major depressive disorder, recurrent episode (3) Panic disorder with agoraphobia and severe panic attacks JAGDEEP VALENCIA MD Oct 03, 2017 22:17
--- NOTE | 2017-10-03 23:28 | PN ---
DATE: 10/02/2017 PSYCHIATRIC PROGRESS NOTE This is a late entry, 10/02, covers elements not covered in my initial note. SUBJECTIVE: I met with the patient in the evening in her room at length. The patient slept 5-1/2 hours previous evening. Complains of insomnia, wakefulness at night, received Xanax at 4 a.m. because of anxiety. REVIEW OF SYSTEMS: No CV, , pulmonary, eye, ENT system symptoms on review. MENTAL STATUS EXAM: Reasonably oriented. Speech is coherent, abstraction fair, computation impaired, language function intact, attention span short. Mood and affect still anxious, but improved. No suicidal or homicidal ideation. LABORATORY DATA: Reviewed. IMPRESSION: Unchanged from initial note. PLAN: Start melatonin 3 mg at bedtime to help with insomnia, Xanax has been added 0.25 mg t.i.d. p.r.n. anxiety. Continue rest unchanged. JAGDEEP VALENCIA MD DR: HOMERO/av JOB#: [id number] / [id number]
[2017-10-04] MEDS ORDERED: ALPRAZolam 0.25 MG TABLET PO ONE (02:45)
[2017-10-04 06:08] VITALS: BP 163/74
[2017-10-04] MEDS: PANTOPRAZOLE 40 MG TABLET. PO SCH (07:40)
[2017-10-04] MEDS: QUEtiapine 25 MG TABLET. PO SCH ×3 (07:41→16:48)
[2017-10-04] MEDS: DULoxetine HCL 30 MG CAPSULE.DR PO SCH (07:41)
[2017-10-04] MEDS: ASPIRIN 81 MG TAB.CHEW PO SCH (07:41)
[2017-10-04] MEDS: CLOTRIMAZOLE/BETAMETH 1%-0.05% TOPICAL CREAM 15GM TUBE. TP SCH ×2 (07:48→19:54)
[2017-10-04] MEDS: NYSTATIN TOPICAL POWDER 15GM BOTTLE. TP SCH ×2 (07:48→19:54)
[2017-10-04] MEDS ORDERED: ALPRAZolam 0.25 MG TABLET PO PRN ×2 (09:00→17:00)
--- NOTE | 2017-10-04 13:20 | PN ---
DATE: 10/03/2017 PSYCHIATRIC PROGRESS NOTE This is a late entry, 10/03, covers elements not covered in my initial note. SUBJECTIVE: I met with the patient in her room in the afternoon. The patient complains of diarrhea. She slept 6 hours previous evening. She stays diarrhea started after something she ate at lunch, received Xanax 1 in the morning. We will give her Imodium p.r.n. REVIEW OF SYSTEMS: No CV, , pulmonary, eye system symptoms on review. MENTAL STATUS EXAM: Reasonably oriented. Speech is coherent, abstraction fair, computation reasonable, language function intact. Mood and affect still anxious, but improved. LABORATORY DATA: Reviewed. IMPRESSION: Unchanged from initial note. PLAN: No change from initial note. Treat the diarrhea symptomatically. JAGDEEP VALENCIA MD DR: HOMERO/av JOB#: [id number] / [id number]
[2017-10-04 16:07] VITALS: BP 124/66
[2017-10-04] MEDS: ALPRAZolam 0.25 MG TABLET PO PRN (16:48)
[2017-10-04] MEDS: MIRTAZAPINE 15 MG TABLET PO SCH (19:53)
[2017-10-04] MEDS: MELATONIN 3 MG TABLET PO SCH (19:53)
[2017-10-05] MEDS ORDERED: ACET160S PO (01:22)
[2017-10-05] MEDS ORDERED: ALPR0.25 PO (01:23)
[2017-10-05] MEDS ORDERED: CALC300T5 PO (01:24)
[2017-10-05] MEDS ORDERED: CHOL500021 PO (01:25)
[2017-10-05] MEDS ORDERED: CLOT15CR3 TP (01:28)
[2017-10-05] MEDS ORDERED: DULO30CA2 PO (01:29)
[2017-10-05] MEDS ORDERED: LOPE2CAP88 PO (01:30)
[2017-10-05] MEDS ORDERED: MAG30ORA2 PO (01:31)
[2017-10-05] MEDS ORDERED: MAGN400O7 PO (01:32)
[2017-10-05] MEDS ORDERED: MELA3TAB2 PO (01:33)
[2017-10-05] MEDS ORDERED: METH29OI TP (01:34)
[2017-10-05] MEDS ORDERED: MIRT15TA3 PO (01:36)
[2017-10-05] MEDS ORDERED: NYST60PO TP (01:37)
[2017-10-05] MEDS ORDERED: QUET25TA5 PO (01:39)
[2017-10-05] MEDS ORDERED: ACET325T9 PO (01:41)
[2017-10-05 05:32] VITALS: BP 147/87
[2017-10-05] MEDS: ALPRAZolam 0.25 MG TABLET PO PRN (06:46)
[2017-10-05] MEDS: QUEtiapine 25 MG TABLET. PO SCH (07:54)
[2017-10-05] MEDS: ASPIRIN 81 MG TAB.CHEW PO SCH (07:55)
[2017-10-05] MEDS: PANTOPRAZOLE 40 MG TABLET. PO SCH (07:55)
[2017-10-05] MEDS: DULoxetine HCL 30 MG CAPSULE.DR PO SCH (07:55)
[2017-10-05] MEDS: NYSTATIN TOPICAL POWDER 15GM BOTTLE. TP SCH (07:56)
[2017-10-05] MEDS: CLOTRIMAZOLE/BETAMETH 1%-0.05% TOPICAL CREAM 15GM TUBE. TP SCH (07:57)
--- NOTE | 2017-10-05 15:54 | PDOC ---
Exam Note: Sal Note: Please also refer to the separate dictated note~for this date of service dictated separately.~Patient seen individually. Discussed the patient with Nursing staff reviewed the chart.~Reviewed interim history and current functioning. Reviewed vital signs,~Labs/ Radiology~and current medications noted below. Continue current treatment with the changes noted in the dictated addendum note Assessment: Vital Signs: Vital Signs Date Time Temp Pulse Resp B/P (MAP) Pulse Ox O2 Delivery O2 Flow Rate FiO2 10/05/17 05:32 99.1 93 16 147/87 (107) 98 10/04/17 16:07 Room Air I&O Intake and Output 10/05/17 07:00 Intake Total 1240 ml Balance 1240 ml Intake Oral 1240 ml # Voids 1 Current Medications: Meds: Current Medications Acetaminophen (Tylenol) 650 mg PRN Q6HRS PRN PO PAIN / TEMP Last administered on 09/27/17at 05:58; Start 09/24/17 at 17:00; Stop 10/05/17 at 10:28; Status DC Multi-Ingredient Ointment (Analgesic [place]) 1 carolin PRN QID PRN TP MUSCLE PAIN; Start 09/24/17 at 17:00; Stop 10/05/17 at 10:28; Status DC Al Hydroxide/Mg Hydroxide (Mylanta Plus Xs) 15 ml PRN AFTMEALHC PRN PO DYSPEPSIA Last administered on 10/02/17at 06:37; Start 09/24/17 at 17:00; Stop at 10:28; Status DC Magnesium Hydroxide (Milk Of Magnesia) 2,400 mg PRN QHS PRN PO CONSTIPATION; Start 09/24/17 at 17:00; Stop 10/05/17 at 10:28; Status DC Alprazolam (Xanax) 0.5 mg PRN TID PRN PO ANXIETY / AGITATION; Start 09/24/17 at 17:15; Stop 09/24/17 at 17:37; Status DC Bupropion HCl (Wellbutrin Xl) 150 mg DAILY PO ; Start 09/25/17 at 09:00; Stop 09/25/17 at 09:00; Status DC Cyanocobalamin (Vitamin B-12) 1,000 mcg QMONTH IM ; Start 10/24/17 at 09:00; Stop 10/24/17 at 09:00; Status DC Aspirin (Children'S Aspirin) 81 mg DAILY PO Last administered on 10/05/17at 07: 55; Start 09/25/17 at 09:00; Stop 10/05/17 at 10:28; Status DC Pantoprazole Sodium (Protonix) 40 mg DAILY PO Last administered on 10/05/17at 07 :55; Start 09/25/17 at 09:00; Stop 10/05/17 at 10:28; Status DC Alprazolam (Xanax) 0.5 mg TID PO Last administered on 09/26/17at 14:00; Start 09/24/17 at 21:00; Stop 09/26/17 at 18:16; Status DC Cyanocobalamin (Vitamin B-12) 1,000 mcg QMONTH IM ; Start 10/14/17 at 09:00; Stop 10/14/17 at 09:00; Status DC Duloxetine HCl (Cymbalta) 30 mg DAILY PO Last administered on 10/05/17at 07:55; Start 09/26/17 at 09:00; Stop 10/05/17 at 10:28; Status DC Quetiapine Fumarate (SEROquel) 12.5 mg BIDWBKFT/MARILYN PO Last administered on 09/28at 11:53; Start 09/26/17 at 08:00; Stop 09/28/17 at 18:02; Status DC Calcium Carbonate/ Glycine (Tums) 500 mg PRN AFTMEALHC PRN PO INDIGESTION Last administered on 09/25/17at 14:56; Start 09/25/17 at 13:45; Stop 10/05/17 at 10:28; Status DC Nystatin (Nystop) 1 carolin BID TP Last administered on 10/05/17at 07:56; Start 09/25 at 21:00; Stop 10/05/17 at 10:28; Status DC Nystatin (Nystop) 15 carolin STK-MED ONCE TP Last administered on 09/25/17at 17:39; Start 09/25/17 at 17:39; Stop 09/25/17 at 17:40; Status DC Mirtazapine (Remeron) 7.5 mg QHS PO Last administered on 09/27/17at 21:00; Start 09/25/17 at 21:00; Stop 09/28/17 at 16:28; Status DC Alprazolam (Xanax) 0.5 mg PRN TID PRN PO ANXIETY / AGITATION; Start 09/26/17 at 18:30; Stop 09/27/17 at 16:59; Status DC Betamethasone/ Clotrimazole (Lotrisone) 1 carolin BID TP Last administered on at 07:57; Start 09/27/17 at 21:00; Stop 10/05/17 at 10:28; Status DC Alprazolam (Xanax) 0.25 mg BID PO Last administered on 09/30/17at 19:28; Start 09/27/17 at 21:00; Stop 09/30/17 at 22:00; Status DC Alprazolam (Xanax) 0.25 mg DAILY PRN PO ANXIETY / AGITATION Last administered on 10/03/17at 07:15; Start 10/01/17 at 09:00; Stop 10/03/17 at 12:01; Status DC Alprazolam (Xanax) 0.25 mg PRN BID PRN PO ANXIETY / AGITATION; Start 10/04/17 at 09:00; Stop 10/04/17 at 09:00; Status DC Mirtazapine (Remeron) 15 mg QHS PO Last administered on 10/04/17at 19:53; Start 09/28/17 at 21:00; Stop 10/05/17 at 10:28; Status DC Quetiapine Fumarate (SEROquel) 12.5 mg TID@0900,1300,1700 PO Last administered on 10/05/17at 07:54; Start 09/29/17 at 09:00; Stop 10/05/17 at 10:28; Status DC Vitamin D (Vitamin D3) 50,000 unit WEEKLY PO Last administered on 09/30/17at 13: 24; Start 09/30/17 at 13:30; Stop 10/05/17 at 10:28; Status DC Alprazolam (Xanax) 0.25 mg PRN TID PRN PO ANXIETY / AGITATION Last administered on 10/05/17at 06:46; Start 10/04/17 at 09:00; Stop 8/15/18 at 10:28 ; Status DC Melatonin 3 mg QHS PO Last administered on 10/04/17at 19:53; Start 10/02/17 at 21:00; Stop 10/05/17 at 10:28; Status DC Loperamide HCl (Imodium) 2 mg PRN Q1HR PRN PO DIARRHEA; Start 10/03/17 at 14:00 ; Stop 10/05/17 at 10:28; Status DC Alprazolam (Xanax) 0.25 mg 1X ONCE PO Last administered on 10/04/17at 02:46; Start 10/04/17 at 02:45; Stop 10/04/17 at 02:46; Status DC Alprazolam (Xanax) 0.125 mg PRN TID PRN PO ANXIETY / AGITATION; Start 10/04/17 at 17:00; Stop 10/05/17 at 10:28; Status DC Active Scripts Active Reported Tylenol (Acetaminophen) 325 Mg Tablet 650 Mg PO PRN Q6HRS PRN Seroquel (Quetiapine Fumarate) 25 Mg Tablet 12.5 Mg PO [id number],1700 Nystop (Nystatin) 60 Gm Powder 1 [place] TP BID Mirtazapine 15 Mg Tablet 15 Mg PO HS Analgesic [place] (Methyl Salicylate/Menthol) 28 Gm Oint...g. 1 Carolin TP PRN QID PRN Melatonin 3 Mg Tablet 3 Mg PO HS Milk Of Magnesia (Magnesium Hydroxide) 400 Mg/5 Ml Oral.susp 2,400 Mg PO PRN Q6HRS PRN Mag-Al Plus Xs Suspension (Mag Hydrox/Al Hydrox/Simeth) 30 Ml Oral.susp 15 Ml PO PRN AFTMEALHC PRN Imodium A-D (Loperamide HCl) 2 Mg Capsule 2 Mg PO PRN Q1HR PRN Cymbalta (Duloxetine Hcl) 30 Mg Capsule.dr 30 Mg PO DAILY Lotrisone Cream (Clotrimazole/Betamethasone Dip) 15 Gm Cream..g. 1 Carolin TP BID PRN D3-50 (Cholecalciferol (Vitamin D3)) 50,000 Unit Capsule 50,000 Unit PO WEEKLY ON TUESDAY Tums (Calcium Carbonate) 300 Mg Tab.chew 500 Mg PO PRN AFTMEALHC PRN Xanax (Alprazolam) 0.25 Mg Tablet 0.25 Mg PO PRN TID PRN take 1/2 tablet or 1 tablet as needed three times a day for anxiety. Protonix (Pantoprazole Sodium) 40 Mg Tablet.dr 1 PO DAILY Cyanocobalamin Injection (Cyanocobalamin (Vitamin B-12)) 1,000 Mcg/1 Ml Vial 1, 000 Mcg IJ QMONTH Aspirin 81 Mg Tab.chew 81 Mg PO DAILY I have reviewed the current psychotropics carefully including drug interactions. Risk benefit ratio favors no change other than as noted in my dictated progress note. Diagnosis: Problems: (1) Panic disorder with agoraphobia and severe panic attacks (2) Major depressive disorder, recurrent episode (3) Anxiety disorder JAGDEEP VALENCIA MD Oct 05, 2017 15:54
--- NOTE | 2017-10-05 23:00 | DS ---
DATE OF DISCHARGE: 10/05/2017 DISCHARGE SUMMARY/PSYCHIATRIC PROGRESS NOTE This note covers elements not covered in my initial note of 10/05/2017. REASON FOR ADMISSION: Please refer to the admission history for details. Briefly, the patient is a 67-year-old female referred to us from [facility] Emergency Room by her primary care physician, Dr. Fabian Mercer on account of increasing panic, anxiety, being isolated, scared to leave the house where she lives alone. She has been extremely depressed, has failed outpatient psychiatric treatment at [facility] and with Dr. Mercer. CHIEF COMPLAINT: "I can't go on like this." HISTORY OF PRESENT ILLNESS: The patient has a history of progressively worsening anxiety, panic attacks, depressive symptoms. She lives alone, has been more isolative, agoraphobic. No active suicidal or homicidal ideation, but she feels overwhelmed and at times would not care if something happened to her. No clear symptoms of bipolar disorder. PAST PSYCHIATRIC HISTORY: As above. MEDICAL HISTORY: Positive for Crohn's disease, left eye vision problems. ACCU-CHEKS: None. CODE STATUS: DNR. ALLERGIES: FLORINEF, DARVOCET, PREDNISONE, REMICADE, SEPTRA, TORADOL, LEVAQUIN, KETOROLAC. DIET: Regular. No diary, low sodium. MEDICATIONS: Whole. Ambulates ad-heike. UA negative in [place] [facility]. CURRENT SIGNIFICANT FINDINGS AND CLINICAL COURSE: Following admission, the patient was seen individually by myself, followed medically per Dr. Emmanuel/Dr. Olivia. She remained extremely anxious, overwhelmed, depressed. Adjustments were made in her psychotropics. Xanax was tapered and discontinued. Seroquel added, increased to 12.5 mg 3 times a day, Cymbalta 30 mg a day, Remeron 7.5 at bedtime, melatonin 3 mg at bedtime, Xanax 0.25 mg t.i.d. p.r.n. Gradually, mood appeared to improve. She had much improved panic, anxiety, use Xanax p.r.n. No suicidal or homicidal ideation at discharge. CONDITION AT DISCHARGE: Improved. FINAL DIAGNOSES: Major depressive disorder, recurrent, in partial remission, panic disorder with agoraphobia, anxiety disorder, unspecified. Rest unchanged from admission. DISCHARGE MEDICATIONS: Please refer to the MRAD. DISCHARGE INSTRUCTIONS: [facility]. Medical followup with Dr. Mercer. Time for discharge day management greater than 30 minutes. JAGDEEP VALENCIA MD DR: HOMERO/av JOB#: [id number] / [id number]
--- NOTE | 2017-10-06 00:04 | PN ---
DATE: 10/04/2017 PSYCHIATRIC PROGRESS NOTE This is a late entry, 10/04, covers elements not covered in my initial note. SUBJECTIVE: I met with the patient in the evening. The patient slept 8 hours previous evening in her room at length. She complains of being increasingly anxious and has had p.r.n. Xanax. She admits that some of the anxiety could be apprehension about discharge, 10/05. REVIEW OF SYSTEMS: Other than tremors, anxiety, no CV, , pulmonary, eye, ENT system symptoms on review. MENTAL STATUS EXAM: Reasonably oriented. Speech is coherent, abstraction fair, computation reasonable, language function intact. Mood and affect remains a little anxious, but overall improved. LABORATORY DATA: Reviewed. IMPRESSION: Unchanged from initial note. PLAN: No change from initial note. MAN Alejandro VALENCIA MD DR: HOMERO/av JOB#: [id number] / [id number]
--- NOTE | 2017-10-06 21:03 | PDOC ---
Exam Note: Sal Note: Late entry for DOS October 04, 2017. Please also refer to the separate dictated note~for this date of service dictated separately.~Patient seen individually. Discussed the patient with Nursing staff reviewed the chart.~Reviewed interim history and current functioning. Reviewed vital signs,~Labs/ Radiology~and current medications noted below. Continue current treatment with the changes noted in the dictated addendum note Assessment: Vital Signs: VS - Last 72 Hours, by Label Date Time Temp Pulse Resp B/P (MAP) Pulse Ox O2 Delivery O2 Flow Rate FiO2 10/05/17 05:32 99.1 93 16 147/87 (107) 98 10/04/17 16:07 98.6 103 20 124/66 (85) 95 Room Air 10/04/17 06:08 97.6 74 16 163/74 (103) 98 Vital Signs Date Time Temp Pulse Resp B/P (MAP) Pulse Ox O2 Delivery O2 Flow Rate FiO2 10/05/17 05:32 99.1 93 16 147/87 (107) 98 10/04/17 16:07 Room Air I&O Intake and Output 10/06/17 06:59 Intake Total 240 ml Balance 240 ml Intake Oral 240 ml Current Medications: Meds: Current Medications Acetaminophen (Tylenol) 650 mg PRN Q6HRS PRN PO PAIN / TEMP Last administered on 09/27/17at 05:58; Start 09/24/17 at 17:00; Stop 10/05/17 at 10:28; Status DC Multi-Ingredient Ointment (Analgesic [place]) 1 carolin PRN QID PRN TP MUSCLE PAIN; Start 09/24/17 at 17:00; Stop 10/05/17 at 10:28; Status DC Al Hydroxide/Mg Hydroxide (Mylanta Plus Xs) 15 ml PRN AFTMEALHC PRN PO DYSPEPSIA Last administered on 10/02/17at 06:37; Start 09/24/17 at 17:00; Stop at 10:28; Status DC Magnesium Hydroxide (Milk Of Magnesia) 2,400 mg PRN QHS PRN PO CONSTIPATION; Start 09/24/17 at 17:00; Stop 10/05/17 at 10:28; Status DC Alprazolam (Xanax) 0.5 mg PRN TID PRN PO ANXIETY / AGITATION; Start 09/24/17 at 17:15; Stop 09/24/17 at 17:37; Status DC Bupropion HCl (Wellbutrin Xl) 150 mg DAILY PO ; Start 09/25/17 at 09:00; Stop 09/25/17 at 09:00; Status DC Cyanocobalamin (Vitamin B-12) 1,000 mcg QMONTH IM ; Start 10/24/17 at 09:00; Stop 10/24/17 at 09:00; Status DC Aspirin (Children'S Aspirin) 81 mg DAILY PO Last administered on 10/05/17at 07: 55; Start 09/25/17 at 09:00; Stop 10/05/17 at 10:28; Status DC Pantoprazole Sodium (Protonix) 40 mg DAILY PO Last administered on 10/05/17at 07 :55; Start 09/25/17 at 09:00; Stop 10/05/17 at 10:28; Status DC Alprazolam (Xanax) 0.5 mg TID PO Last administered on 09/26/17at 14:00; Start 09/24/17 at 21:00; Stop 09/26/17 at 18:16; Status DC Cyanocobalamin (Vitamin B-12) 1,000 mcg QMONTH IM ; Start 10/14/17 at 09:00; Stop 10/14/17 at 09:00; Status DC Duloxetine HCl (Cymbalta) 30 mg DAILY PO Last administered on 10/05/17at 07:55; Start 09/26/17 at 09:00; Stop 10/05/17 at 10:28; Status DC Quetiapine Fumarate (SEROquel) 12.5 mg BIDWBKFT/MARILYN PO Last administered on 09/28at 11:53; Start 09/26/17 at 08:00; Stop 09/28/17 at 18:02; Status DC Calcium Carbonate/ Glycine (Tums) 500 mg PRN AFTMEALHC PRN PO INDIGESTION Last administered on 09/25/17at 14:56; Start 09/25/17 at 13:45; Stop 10/05/17 at 10:28; Status DC Nystatin (Nystop) 1 carolin BID TP Last administered on 10/05/17at 07:56; Start 09/25 at 21:00; Stop 10/05/17 at 10:28; Status DC Nystatin (Nystop) 15 carolin STK-MED ONCE TP Last administered on 09/25/17at 17:39; Start 09/25/17 at 17:39; Stop 09/25/17 at 17:40; Status DC Mirtazapine (Remeron) 7.5 mg QHS PO Last administered on 09/27/17at 21:00; Start 09/25/17 at 21:00; Stop 09/28/17 at 16:28; Status DC Alprazolam (Xanax) 0.5 mg PRN TID PRN PO ANXIETY / AGITATION; Start 09/26/17 at 18:30; Stop 09/27/17 at 16:59; Status DC Betamethasone/ Clotrimazole (Lotrisone) 1 carolin BID TP Last administered on at 07:57; Start 09/27/17 at 21:00; Stop 10/05/17 at 10:28; Status DC Alprazolam (Xanax) 0.25 mg BID PO Last administered on 09/30/17at 19:28; Start 09/27/17 at 21:00; Stop 09/30/17 at 22:00; Status DC Alprazolam (Xanax) 0.25 mg DAILY PRN PO ANXIETY / AGITATION Last administered on 10/03/17at 07:15; Start 10/01/17 at 09:00; Stop 10/03/17 at 12:01; Status DC Alprazolam (Xanax) 0.25 mg PRN BID PRN PO ANXIETY / AGITATION; Start 10/04/17 at 09:00; Stop 10/04/17 at 09:00; Status DC Mirtazapine (Remeron) 15 mg QHS PO Last administered on 10/04/17at 19:53; Start 09/28/17 at 21:00; Stop 10/05/17 at 10:28; Status DC Quetiapine Fumarate (SEROquel) 12.5 mg TID@0900,1300,1700 PO Last administered on 10/05/17at 07:54; Start 09/29/17 at 09:00; Stop 10/05/17 at 10:28; Status DC Vitamin D (Vitamin D3) 50,000 unit WEEKLY PO Last administered on 09/30/17at 13: 24; Start 09/30/17 at 13:30; Stop 10/05/17 at 10:28; Status DC Alprazolam (Xanax) 0.25 mg PRN TID PRN PO ANXIETY / AGITATION Last administered on 10/05/17at 06:46; Start 10/04/17 at 09:00; Stop 10/05/17 at 10:28 ; Status DC Melatonin 3 mg QHS PO Last administered on 10/04/17at 19:53; Start 10/02/17 at 21:00; Stop 10/05/17 at 10:28; Status DC Loperamide HCl (Imodium) 2 mg PRN Q1HR PRN PO DIARRHEA; Start 10/03/17 at 14:00 ; Stop 10/05/17 at 10:28; Status DC Alprazolam (Xanax) 0.25 mg 1X ONCE PO Last administered on 10/04/17at 02:46; Start 10/04/17 at 02:45; Stop 10/04/17 at 02:46; Status DC Alprazolam (Xanax) 0.125 mg PRN TID PRN PO ANXIETY / AGITATION; Start 10/04/17 at 17:00; Stop 10/05/17 at 10:28; Status DC Active Scripts Active Reported Tylenol (Acetaminophen) 325 Mg Tablet 650 Mg PO PRN Q6HRS PRN Seroquel (Quetiapine Fumarate) 25 Mg Tablet 12.5 Mg PO [id number],1700 Nystop (Nystatin) 60 Gm Powder 1 [place] TP BID Mirtazapine 15 Mg Tablet 15 Mg PO HS Analgesic [place] (Methyl Salicylate/Menthol) 28 Gm Oint...g. 1 Carolin TP PRN QID PRN Melatonin 3 Mg Tablet 3 Mg PO HS Milk Of Magnesia (Magnesium Hydroxide) 400 Mg/5 Ml Oral.susp 2,400 Mg PO PRN Q6HRS PRN Mag-Al Plus Xs Suspension (Mag Hydrox/Al Hydrox/Simeth) 30 Ml Oral.susp 15 Ml PO PRN AFTMEALHC PRN Imodium A-D (Loperamide HCl) 2 Mg Capsule 2 Mg PO PRN Q1HR PRN Cymbalta (Duloxetine Hcl) 30 Mg Capsule.dr 30 Mg PO DAILY Lotrisone Cream (Clotrimazole/Betamethasone Dip) 15 Gm Cream..g. 1 Carolin TP BID PRN D3-50 (Cholecalciferol (Vitamin D3)) 50,000 Unit Capsule 50,000 Unit PO WEEKLY ON TUESDAY Tums (Calcium Carbonate) 300 Mg Tab.chew 500 Mg PO PRN AFTMEALHC PRN Xanax (Alprazolam) 0.25 Mg Tablet 0.25 Mg PO PRN TID PRN take 1/2 tablet or 1 tablet as needed three times a day for anxiety. Protonix (Pantoprazole Sodium) 40 Mg Tablet.dr 1 PO DAILY Cyanocobalamin Injection (Cyanocobalamin (Vitamin B-12)) 1,000 Mcg/1 Ml Vial 1, 000 Mcg IJ QMONTH Aspirin 81 Mg Tab.chew 81 Mg PO DAILY I have reviewed the current psychotropics carefully including drug interactions. Risk benefit ratio favors no change other than as noted in my dictated progress note. 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
[2017-10-14] MEDS ORDERED: CYANOCOBALAMIN (VITAMIN B-12) 1,000 MCG/ML VIAL IM SCH (09:00)
[2017-10-24] MEDS ORDERED: CYANOCOBALAMIN (VITAMIN B-12) 1,000 MCG/ML VIAL IM SCH (09:00)
== END 2017-10-05 10:27 | disposition home or self-care (01) | DRG 885 ==
LOC: GEROPSY 16:42
PROVIDERS: ADMIT Psychiatry & Neurology Psychiatry; ATTEND Psychiatry & Neurology Psychiatry
DX: F33.9 Major depressive disorder, recurrent, unspecified (principal); K50.90 Crohn's disease, unspecified, without complications; E53.8 Deficiency of other specified B group vitamins; F22 Delusional disorders; F33.41 Major depressive disorder, recurrent, in partial remission; F40.01 Agoraphobia with panic disorder; F41.1 Generalized anxiety disorder; G47.00 Insomnia, unspecified; H81.09 Meniere's disease, unspecified ear; I48.91 Unspecified atrial fibrillation; K21.9 Gastro-esophageal reflux disease without esophagitis; Z60.2 Problems related to living alone; Z80.1 Family history of malignant neoplasm of trachea, bronchus and lung; F40.00 Agoraphobia, unspecified; Z66 Do not resuscitate; Z82.49 Family history of ischemic heart disease and other diseases of the circulatory system; Z85.828 Personal history of other malignant neoplasm of skin; Z87.891 Personal history of nicotine dependence; Z98.41 Cataract extraction status, right eye; Z98.42 Cataract extraction status, left eye; Z83.3 Family history of diabetes mellitus; Z90.49 Acquired absence of other specified parts of digestive tract
CPT/HCPCS: 36415; 80053; 80061; 81001; 82306; 82607; 83036; 83540; 83550; 83735; 84436; 84443; 84480; 85025; 86592